=== PATIENT | female | born 1980 | race Caucasian/White ===

== ENCOUNTER 2017-02-15 10:42 | Emergency (ER) | payer OTHER ==
[2017-02-15 10:53] VITALS: BP 131/84; PULSE 80; TEMP 98.5; BMI 29.5
--- NOTE | 2017-02-15 11:27 | PDOC ---
History of Present Illness - General Chief Complaint: Pain Stated Complaint: LT SIDE PAIN Time Seen by Provider: 02/15/17 11:21 History Source: Patient Exam Limitations: No Limitations - History of Present Illness Initial Comments: CHIEF COMPLAINT: 37 y/o afebrile female with PMH HLD, PCOS, diverticulitis with previous cholectomy c/o left side and upper back pain since last night. HISTORY OF PRESENT ILLNESS: The patient states the pain is intermittent and at it's worst she can't get comfortable. She also admits to nausea and vomiting. She denies fever, chills, cough, hemoptysis, CP, SOB, hematuria, dysuria, diarrhea, constipation, melena, bloody stools. Her last normal BM was yesterday. She is a non smoker, has not traveled recently and is not on control. Vital signs on arrival are within normal limits. REVIEW OF SYSTEMS: GENERAL/CONSTITUTIONAL: No fever/chills. No weakness. No weight change. HEAD, EYES, EARS, NOSE AND THROAT: No change in vision. No ear pain or discharge. No sore throat. CARDIOVASCULAR: No chest pain or shortness of breath. RESPIRATORY: No cough, wheezing, or hemoptysis. GASTROINTESTINAL: +nausea and vomiting and left sided abdominal pain. No diarrhea, constipation, bloody or dark stools. GENITOURINARY: No dysuria, frequency, or change in urination. MUSCULOSKELETAL: No joint or muscle swelling or pain. No neck pain. +left side and upper back pain. SKIN: No rash or easy bruising. NEUROLOGIC: No headache, vertigo, loss of consciousness, or loss of sensation. PHYSICAL EXAM: GENERAL: The patient is awake, alert, and fully oriented, in no acute distress. She is well appearing and ambulatory. HEAD: Normal with no signs of trauma. ENT: Pupils equal, round and reactive to light, extraocular movements intact, sclera anicteric, conjunctiva clear. Neck supple. LUNGS: Clear to auscultation bilaterally. Normal excursion. No respiratory distress or use of accessory muscles. CV: RRR, S1/S2, no MRG. Cap refill < 2 sec. ABDOMEN: Soft, non-distended, TTP of left flank and LLQ. No rebound, guarding or rigidity. Normal BS x 4 quadrants. BACK: +left CVA TTP. EXTREMITIES: Normal range of motion, no edema. NEUROLOGICAL: Normal speech, normal gait. CN II-XII grossly intact. PSYCH: Normal mood, normal affect. SKIN: Warm, dry, normal turgor, no rashes or lesions noted. Past History - Past Medical History Allergies/Adverse Reactions: Allergies Allergy/AdvReac Type Severity Reaction Status Date / Time No Known Drug Allergies Allergy Verified 02/15/17 10:53 shrimp Allergy Uncoded 02/15/17 10:53 Home Medications: Ambulatory Orders Acetaminophen [Tylenol .Regular Strength -] 650 mg PO Q4H PRN #0 tablet Sucralfate [Carafate -] 1 gm PO BID #60 tablet 10/02/15 Levofloxacin [Levaquin -] 500 mg PO DAILY #7 tablet 10/03/15 Metronidazole [Flagyl -] 500 mg PO TID #21 tablet 10/03/15 Pantoprazole Sodium [Protonix -] 20 mg PO DAILY #30 tablet.ec 10/03/15 Anemia: No DVT: Yes GI Disorders: Yes (DIVERTICULITIS) Hypercholesterolemia: Yes Kidney Stones: Yes Suicide Attempt (Hx): No - Surgical History Abdominal Surgery: Yes Appendectomy: No Cardiac Surgery: No Cholecystectomy: Yes GI Surgery: Yes (COLECTOMY) Lung Surgery: No Neurologic Surgery: No Orthopedic Surgery: No - Immunization History Immunization Up to Date: Yes - Psycho/Social/Smoking Cessation Hx Anxiety: No Suicidal Ideation: No Smoking Status: No Smoking History: Never smoked Have you smoked in the past 12 months: No Number of Cigarettes Smoked Daily: 0 Hx Alcohol Use: No Drug/Substance Use Hx: No Substance Use Type: None Hx Substance Use Treatment: No *Physical Exam - Vital Signs Last Vital Signs Temp Pulse Resp BP Pulse Ox 98.5 F 80 20 131/84 97 02/15/17 10:50 02/15/17 10:50 02/15/17 10:50 02/15/17 10:50 02/15/17 10:50 ED Treatment Course - LABORATORY CBC & Chemistry Diagram: 02/15/17 12:12 02/15/17 12:12 Medical Decision Making - Medical Decision Making A/P: 37 y/o afebrile female with possible kidney stone. Plan is as follows: 1. Labs 2. UA/culture/hcg 3. IV fluids 4. IV toradol 5. IV zofran 6. Spiral CT Labs unremarkable UA with 3+ blood and [address] IMPRESSION: Left nephrolithiasis with no evidence of obstructive uropathy or acute pathology within the abdomen or pelvis. The patient states she feels much better after medicine. Explained all of her results. Will discharge to home with instructions to take Motrin with food if needed for pain and drink plenty of fluids. Pt instructed to f/u with her PCP within 1 week and return to the ER with any worsening or concerning symptoms. The patient verbalizes understanding of all instructions, has no further questions and is awaiting discharge. *DC/Admit/Observation/Transfer Diagnosis at time of Disposition: Left flank pain Abdominal pain Qualifiers: Abdominal location: left lower quadrant Qualified Code(s): R10.32 - Left lower quadrant pain - Discharge Dispostion Disposition: HOME Condition at time of disposition: Improved - Referrals Referrals: Juan Daugherty MD [Primary Care Provider] - Call tomorrow - Patient Instructions Printed Discharge Instructions: DI for Flank Pain, DI for Abdominal Pain-Adult Additional Instructions: Discharge Instructions: -Take 600mg of Motrin every 6 hours with food for pain if needed -Drink at least 64oz of water daily -Follow up with Dr. Daugherty within 1 week -Return to the ER with any worsening or concerning symptoms
[2017-02-15] MEDS ORDERED: SODIUM CHLORIDE 1,000 ML IV STA (11:33)
[2017-02-15] MEDS ORDERED: ONDANSETRON 4 MG/2 ML VIAL IVPUSH ONE (12:17)
[2017-02-15] MEDS ORDERED: ONDANSETRON 4 MG/2 ML VIAL ONE (12:22)
[2017-02-15 12:23] LABS: BASOPHIL 0.9 % (0-2.0); EOSINOPHIL 2.6 % (0-4.5); MCHC 33.6 g/dl (32.0-36.0); MEAN CELL VOLUME 86.3 fl (80-96); MEAN PLT VOLUME 8.7 fl (7.5-11.1); NEUTROPHILS 57.3 % (42.8-82.8); PLATELET COUNT 255 K/MM3 (134-434); RDW 13.6 % (11.6-15.6); WHITE BLOOD COUNT 7.2 K/mm3 (4.0-10.0)
[2017-02-15 13:00] LABS: ALBUMIN 3.4 g/dl (3.4-5.0); ALK PHOS 86 U/L (45-117); ANION GAP 10 (8-16); BILIRUBIN,TOTAL 0.4 mg/dL (0.2-1.0); CALCIUM 8.7 mg/dL (8.5-10.1); CO2 26 mmol/L (21-32); CPK 94 IU/L (26-192); CREATININE 0.6 mg/dL (0.55-1.02); GLUCOSE,RANDOM 85 mg/dL (74-106); SGPT/ALT 25 U/L (12-78); TOT PROT 6.9 g/dl (6.4-8.2); TROPONIN I < 0.02 ng/ml (0.00-0.05)
[2017-02-15 13:01] LABS: SGOT/AST 19 U/L (15-37)
[2017-02-15] MEDS ORDERED: KETOROLAC TROMETHAMINE 30 MG/1 ML VIAL IVPUSH ONE (13:14)
[2017-02-15] MEDS ORDERED: KETOROLAC TROMETHAMINE 30 MG/1 ML VIAL ONE (13:34)
[2017-02-15 14:17] LABS: URINE APPEARANCE SLCLOUDY; URINE BILIRUBIN NEGATIVE (NEGATIVE); URINE BLOOD 3+ (NEGATIVE); URINE COLOR LTYELLOW; URINE GLUCOSE (UA) NEGATIVE (NEGATIVE); URINE KETONE NEGATIVE (NEGATIVE); URINE LEUK ESTERASE NEGATIVE (NEGATIVE); URINE NITRITE NEGATIVE (NEGATIVE); URINE PROTEIN NEGATIVE (NEGATIVE); URINE UROBILINOGEN NEGATIVE mg/dL (0.2-1.0)
[2017-02-15 14:30] LABS: URINE MUCUS RARE; URINE RBC 170 /hpf (0-3); URINE WBC 11 /hpf (3-5)
--- NOTE | 2017-02-15 15:20 | PDOC ---
*Physical Exam - Vital Signs Last Vital Signs Temp Pulse Resp BP Pulse Ox 98.5 F 80 20 131/84 97 02/15/17 10:50 02/15/17 10:50 02/15/17 10:50 02/15/17 10:50 02/15/17 10:50 ED Treatment Course - LABORATORY CBC & Chemistry Diagram: 02/15/17 12:12 02/15/17 12:12 - ADDITIONAL ORDERS Additional order review: Laboratory Results 02/15/17 02/15/17 02/15/17 13:50 12:17 12:12 Sodium 140 Potassium 4.1 Chloride 104 Carbon Dioxide 26 Anion Gap 10 BUN 10 Creatinine 0.6 Creat Clearance w eGFR > 60 Random Glucose 85 Calcium 8.7 Total Bilirubin 0.4 AST 19 D ALT 25 D Alkaline Phosphatase 86 Creatine Kinase 94 Troponin I < 0.02 Total Protein 6.9 Albumin 3.4 D Serum , Qual Negative Urine Color Ltyellow Urine Appearance Slcloudy Urine pH 7.0 Urine Protein Negative Urine Glucose (UA) Negative Urine Ketones Negative Urine Blood 3+ H Urine Nitrite Negative Urine Bilirubin Negative Urine Urobilinogen Negative Ur Leukocyte Esterase Negative Urine RBC 170 Urine WBC 11 Ur Epithelial Cells Rare Urine Mucus Rare Urine HCG, Qual Negative 02/15/17 12:12 RBC 4.59 MCV 86.3 MCHC 33.6 RDW 13.6 MPV 8.7 Neutrophils % 57.3 Lymphocytes % 32.4 Monocytes % 6.8 Eosinophils % 2.6 Basophils % 0.9 - Medications Given in the ED: ED Medications Discontinued Medications Generic Name Dose Route Start Last Admin Trade Name Freq PRN Reason Stop Dose Admin Sodium Chloride 1,000 mls @ 1,000 mls/hr 02/15/17 11:33 02/15/17 12:11 Normal Saline - IV 02/15/17 12:32 1,000 mls/hr ASDIR STA Administration Ketorolac Tromethamine 30 mg 02/15/17 13:14 02/15/17 13:34 Toradol Injection - IVPUSH 02/15/17 13:15 30 mg ONCE ONE Administration Ondansetron HCl 4 mg 02/15/17 12:17 02/15/17 12:21 Zofran Injection IVPUSH 02/15/17 12:18 4 mg ONCE ONE Administration Medical Decision Making - Medical Decision Making 02/15/17 15:18 I have seen and examined the patient with REGI Rai. I agree with her assessment and plan. *DC/Admit/Observation/Transfer Diagnosis at time of Disposition: Left flank pain Abdominal pain Qualifiers: Abdominal location: left lower quadrant Qualified Code(s): R10.32 - Left lower quadrant pain - Discharge Dispostion Disposition: HOME Condition at time of disposition: Improved - Referrals Referrals: Juan Daugherty MD [Primary Care Provider] - Call tomorrow - Patient Instructions Printed Discharge Instructions: DI for Abdominal Pain-Adult, DI for Flank Pain Additional Instructions: Discharge Instructions: -Take 600mg of Motrin every 6 hours with food for pain if needed -Drink at least 64oz of water daily -Follow up with Dr. Daugherty within 1 week -Return to the ER with any worsening or concerning symptoms - Post Discharge Activity
== END 2017-02-15 15:19 | disposition home or self-care (01) ==
LOC: JER 10:42
PROC: 3E0333Z Introduction of Anti-inflammatory into Peripheral Vein, Percutaneous Approach (ICD-10-PCS; principal; 2017-02-15)
PROC: 3E033GC Introduction of Other Therapeutic Substance into Peripheral Vein, Percutaneous Approach (ICD-10-PCS; 2017-02-15)
PROC: 3E0337Z Introduction of Electrolytic and Water Balance Substance into Peripheral Vein, Percutaneous Approach (ICD-10-PCS; 2017-02-15)
DX: R10.32 Left lower quadrant pain (principal); E78.00 Pure hypercholesterolemia, unspecified; Z87.442 Personal history of urinary calculi
CPT/HCPCS: 36415; 74176; 80053; 81003; 81015; 84484; 84703; 85025; 87086; 99283-25

== ENCOUNTER 2017-08-24 22:47 | Emergency (ER) | payer OTHER ==
[2017-08-24 22:53] VITALS: BMI 33.4
--- NOTE | 2017-08-25 00:28 | PDOC ---
History of Present Illness - General Chief Complaint: Vaginal Bleeding Stated Complaint: VAGINAL BLEEDING/6 WKS Time Seen by Provider: 08/24/17 23:08 - History of Present Illness Initial Comments: 08/25/17 00:28 CHIEF COMPLAINT: vaginal bleeding HISTORY OF PRESENT ILLNESS: 37 yo F F with recent positive test presents to ED with vaginal bleeding x a few hours. Patient reports she had a positive last week and per her LMP she is approximately 6 weeks . She [facility] she felt "some cramping" and went to the restroom and noticed "some pink when I wiped." Since she arrived to the ER she has been bleeding more with clots, similar to the other "3-4 times I had a miscarriage." She denies any SOB, palpitations, lightheadedness, or dizziness. PAST MEDICAL HISTORY: Denies past medical history FAMILY HISTORY: Denies SOCIAL HISTORY: Denies tobacco, alcohol, illicit drug use. SURGICAL HISTORY: Denies ALLERGIES: shrimp REVIEW OF SYSTEMS as per HPI PHYSICAL EXAM General Appearance: Well-appearing, appropriately dressed. No apparent distress. HEENT: EOMI, PERRLA, normal ENT inspection, normal voice, TMs normal, pharynx normal. No conjunctival pallor. No photophobia, scleral icterus. Respiratory/Chest: Lungs CTAB. Cardiovascular: RRR. S1, S2. Gastrointestinal/Abdominal: Normal bowel sounds. Abdomen soft, non-distended. No tenderness or rebound tenderness. No organomegaly, pulsatile mass, guarding , hernia, hepatomegaly, splenomegaly. Musculoskeletal/Extremities: Normal inspection. FROM of all extremities, normal capillary refill. Pelvis Stable. No CVA tenderness. No tenderness to extremities, pedal edema, swelling, erythema or deformity. Integumentary: Appropriate color, dry, warm. No cyanosis, erythema, jaundice or rash Neurologic: rag willow operator II-XII intact. Fully oriented, alert. Appropriate mood/affect. Motor strength 5/5. No appreciable EOM palsy, facial droop or sensory deficit. Past History - Past Medical History Allergies/Adverse Reactions: Allergies Allergy/AdvReac Type Severity Reaction Status Date / Time No Known Drug Allergies Allergy Verified 05/10/17 13:05 shrimp Allergy Uncoded 05/10/17 13:05 Home Medications: Ambulatory Orders NK [No Known Home Medication] 05/10/17 Anemia: No COPD: No DVT: Yes GI Disorders: Yes (DIVERTICULITIS) Hypercholesterolemia: Yes Kidney Stones: Yes - Surgical History Abdominal Surgery: Yes Appendectomy: No Cardiac Surgery: No Cholecystectomy: Yes GI Surgery: Yes (COLECTOMY) Lung Surgery: No Neurologic Surgery: No Orthopedic Surgery: No - Immunization History Immunization Up to Date: Yes - Suicide/Smoking/Psychosocial Hx Smoking Status: No Smoking History: Never smoked Have you smoked in the past 12 months: No Number of Cigarettes Smoked Daily: 0 Information on smoking cessation initiated: No Hx Alcohol Use: No Drug/Substance Use Hx: No Substance Use Type: None Hx Substance Use Treatment: No *Physical Exam - Vital Signs Last Vital Signs Temp Pulse Resp BP Pulse Ox 97.9 F 64 18 111/74 100 08/24/17 22:50 08/24/17 22:50 08/24/17 22:50 08/24/17 22:50 08/24/17 22:50 ED Treatment Course - LABORATORY CBC & Chemistry Diagram: 08/25/17 01:26 08/25/17 01:26 - RADIOLOGY Radiology Studies Ordered: Category Date Time Status TRANSVAGINAL US PREG [US] Stat Ultrasound 08/25/17 23:25 Ordered Medical Decision Making - Medical Decision Making 08/25/17 01:06 37 yo F F with recent positive test presents to ED with vaginal bleeding x a few hours. -T&S, CBC, CMP, beta -TVUS *DC/Admit/Observation/Transfer Diagnosis at time of Disposition: Threatened - Discharge Dispostion Disposition: HOME Condition at time of disposition: Stable Admit: No - Referrals Referrals: Juan Daugherty MD [Primary Care Provider] - Etienne West MD [Staff Physician] - - Patient Instructions Printed Discharge Instructions: DI for Threatened Additional Instructions: You MUST return in 48 hours for a repeat blood test. If you develop severe vaginal bleeding (more than one soaked pad an hour), worsening abdominal pain, lightheadedness, dizziness, or any new or worsening symptoms, please return to the ER. - Post Discharge Activity
--- NOTE | 2017-08-25 01:11 | PDOC ---
*Physical Exam - Vital Signs Last Vital Signs Temp Pulse Resp BP Pulse Ox 97.9 F 64 18 111/74 100 08/24/17 22:50 08/24/17 22:50 08/24/17 22:50 08/24/17 22:50 08/24/17 22:50 Medical Decision Making - Medical Decision Making 08/25/17 01:11 agree with care from VAIBHAV Newman *DC/Admit/Observation/Transfer - Referrals Referrals: Juan Daugherty MD [Primary Care Provider] - - Patient Instructions - Post Discharge Activity
[2017-08-25 01:34] LABS: BASO % 0.8 % (0-2.0); EOS % 1.3 % (0-4.5); HEMATOCRIT 38.3 % (32.4-45.2); LYMPH % 29.8 % (8-40); MCH 29.7 pg (25.7-33.7); MEAN CELL VOLUME 87.4 fl (80-96); MEAN PLT VOLUME 8.3 fl (7.5-11.1); MONO % 5.8 % (3.8-10.2); NEUT % 62.3 % (42.8-82.8); PLATELET COUNT 265 K/MM3 (134-434); RBC 4.38 M/mm3 (3.60-5.2); RDW 12.7 % (11.6-15.6); WHITE BLOOD COUNT 10.7 K/mm3 (4.0-10.0)
[2017-08-25 02:00] LABS: ALBUMIN 3.5 g/dl (3.4-5.0); ANION GAP 8 (8-16); BILIRUBIN,TOTAL 0.6 mg/dL (0.2-1.0); BLOOD UREA NITROGEN 14 mg/dL (7-18); CALCIUM 8.1 mg/dL (8.5-10.1); CHLORIDE 107 mmol/L (98-107); CO2 25 mmol/L (21-32); CREATININE 0.7 mg/dL (0.55-1.02); GLUCOSE,RANDOM 99 mg/dL (74-106); POTASSIUM 3.8 mmol/L (3.5-5.1); SGOT/AST 13 U/L (15-37); SGPT/ALT 19 U/L (12-78); SODIUM 140 mmol/L (136-145)
[2017-08-25 02:03] LABS: ALK PHOS 80 U/L (45-117); TOT PROT 6.6 g/dl (6.4-8.2)
[2017-08-25 02:43] VITALS: BP 110/72; PULSE 86; TEMP 97.8
== END 2017-08-25 02:43 | disposition home or self-care (01) ==
LOC: JER 22:47
DX: O26.891 Other specified pregnancy related conditions, first trimester (principal); O20.8 Other hemorrhage in early pregnancy; O34.81 Maternal care for other abnormalities of pelvic organs, first trimester; N83.201 Unspecified ovarian cyst, right side; Z3A.01 Less than 8 weeks gestation of pregnancy; Z86.718 Personal history of other venous thrombosis and embolism; Z87.19 Personal history of other diseases of the digestive system
CPT/HCPCS: 36415; 76817-TC; 80053; 84702; 85025; 86850; 86900; 86901; 99281-25

== ENCOUNTER 2017-08-27 07:47 | Emergency (ER) | payer OTHER ==
[2017-08-27 08:05] VITALS: TEMP 98; BMI 33.2
--- NOTE | 2017-08-27 08:43 | PDOC ---
History of Present Illness - General Chief Complaint: [facility] [place] Stated Complaint: REVISIT LABS VARIANCE Time Seen by Provider: 08/27/17 08:42 - History of Present Illness Initial Comments: 08/27/17 08:47 Ms. Jimenez is a 37 yo female w/ pmh of HLD, PCOS, diverticulitis representing as instructed after exam 3 days ago for vaginal bleeding. She believes she is approximately 6 weeks and began experiencing cramping and bleeding that prompted previous exam similar to previous miscarriages. Today Ms. Jimenez reports that she experienced further cramping and bleeding for 2 days after her last visit and believes she has miscarried. She has less cramping today but continues to have bleeding consistent with her normal period. She otherwise has no complaints. The patient denies chest pain, shortness of breath, headache and dizziness. Denies fever, chills, nausea, vomit, diarrhea and constipation. Denies dysuria, frequency, urgency and hematuria. Allergies: NKDA Past History - Past Medical History Allergies/Adverse Reactions: Allergies Allergy/AdvReac Type Severity Reaction Status Date / Time No Known Drug Allergies Allergy Verified 08/27/17 08:05 shrimp Allergy Uncoded 08/27/17 08:05 Home Medications: Ambulatory Orders NK [No Known Home Medication] 05/10/17 Anemia: No COPD: No DVT: Yes GI Disorders: Yes (DIVERTICULITIS) Hypercholesterolemia: Yes Kidney Stones: Yes - Surgical History Abdominal Surgery: Yes Appendectomy: No Cardiac Surgery: No Cholecystectomy: Yes GI Surgery: Yes (COLECTOMY) Lung Surgery: No Neurologic Surgery: No Orthopedic Surgery: No - Immunization History Immunization Up to Date: Yes - Suicide/Smoking/Psychosocial Hx Smoking Status: No Smoking History: Never smoked Have you smoked in the past 12 months: No Number of Cigarettes Smoked Daily: 0 Hx Alcohol Use: No Drug/Substance Use Hx: No Substance Use Type: None Hx Substance Use Treatment: No Review of Systems - Review of Systems Comments:: 08/27/17 08:51 GENERAL/CONSTITUTIONAL: No fever or chills. No weakness. HEAD, EYES, EARS, NOSE AND THROAT: No change in vision. No ear pain or discharge. No sore throat. CARDIOVASCULAR: No chest pain or shortness of breath RESPIRATORY: No cough, wheezing, or hemoptysis. GASTROINTESTINAL: No nausea, vomiting, diarrhea or constipation. GENITOURINARY: No dysuria, frequency, or change in urination. MUSCULOSKELETAL: No joint or muscle swelling or pain. No neck or back pain. SKIN: No rash NEUROLOGIC: No headache, vertigo, loss of consciousness, or change in strength/ sensation. ENDOCRINE: No increased thirst. No abnormal weight change HEMATOLOGIC/LYMPHATIC: No anemia, easy bleeding, or history of blood clots. ALLERGIC/IMMUNOLOGIC: No hives or skin allergy. : Cramping for 2 days as described. Bleeding consistent with menstruation over the last 3 days. *Physical Exam - Vital Signs Last Vital Signs Temp Pulse Resp BP Pulse Ox 98 F 85 20 116/81 08/27/17 08:01 08/27/17 08:01 08/27/17 08:01 08/27/17 08:01 - Physical Exam Comments: 08/27/17 08:51 GENERAL: Awake, alert, and fully oriented, in no acute distress HEAD: No signs of trauma, normocephalic, atraumatic EYES: PERRLA, EOMI, sclera anicteric, conjunctiva clear ENT: Auricles normal inspection, hearing grossly normal, nares patent, oropharynx clear without exudates. Moist mucosa NECK: Normal ROM, supple, no lymphadenopathy, JVD, or masses LUNGS: No distress, speaks full sentences, clear to auscultation bilaterally HEART: Regular rate and rhythm, normal S1 and S2, no murmurs, rubs or gallops, peripheral pulses normal and equal bilaterally. ABDOMEN: Soft, nontender, normoactive bowel sounds. No guarding, no rebound. No masses EXTREMITIES: Normal inspection, Normal range of motion, no edema. No clubbing or cyanosis. NEUROLOGICAL: Cranial nerves II through XII grossly intact. Normal speech, normal gait, no focal sensorimotor deficits SKIN: Warm, Dry, normal turgor, no rashes or lesions noted. : Scant blood noted in vaginal vault. Cervical os closed. No CMT or adnexal tenderness. Medical Decision Making - Medical Decision Making 08/27/17 11:55 Ms. Jimenez is a 37 yo female w/ pmh as described who presents for repeat HCG per prior visit plan. Transvaginal US sent for evaluation. HCG shown to be decreased as below. *DC/Admit/Observation/Transfer Diagnosis at time of Disposition: Miscarriage - Referrals Referrals: Juan Daugherty MD [Primary Care Provider] - - Patient Instructions Printed Discharge Instructions: DI for Miscarriage Additional Instructions: Please return if any continued bleeding, pain, fever, chills, or other concerning symptoms. Follow-up with your [facility] as discussed for further evaluation. - Post Discharge Activity Forms/Work/School Notes: Back to Work
--- NOTE | 2017-08-27 09:14 | PDOC ---
Attending Attestation - Resident Resident Name: Eusebio Stroud - ED Attending Attestation I have performed the following: I have examined & evaluated the patient, The case was reviewed & discussed with the resident, I agree w/resident's findings & plan, Exceptions are as noted - HPI HPI: 08/27/17 09:13 37y F hx of HL, PCOS, G6G2 presents with vaginal bleeding, was here a few days ago with Beta of 133, US shows no IUp, was sent to the ED for repeat exam. Pt without any complaints but notes that she had increase vaginal bleeding since . Cramping seems to be improving. Pt denies any fever/chills, n/v, new back pain, vag discharge, dysuria. abd soft nontender pt well appearing will recheck beta and US - Physicial Exam PE: 08/27/17 16:26 see above - Medical Decision Making beta trending lower US shows no IUP suspect missed ab will dc with pmd fu
[2017-08-27] MEDS ORDERED: ACETAMINOPHEN 325 MG TABLET (FP) PO ONE (09:46)
[2017-08-27] MEDS ORDERED: ACETAMINOPHEN 325 MG TABLET (FP) ONE (10:32)
[2017-08-27 13:14] VITALS: BP 112/60; PULSE 80
== END 2017-08-27 13:00 | disposition home or self-care (01) ==
LOC: JER 07:47
DX: O26.891 Other specified pregnancy related conditions, first trimester (principal); O02.1 Missed abortion; Z3A.01 Less than 8 weeks gestation of pregnancy
CPT/HCPCS: 36415; 76817-TC; 84702; 99283-25

== ENCOUNTER 2017-11-10 20:42 | Emergency (ER) | payer OTHER ==
[2017-11-10 21:19] VITALS: BP 105/72; PULSE 100; TEMP 98.2; BMI 33.4
[2017-11-10 23:09] LABS: URINE APPEARANCE CLEAR; URINE BILIRUBIN NEGATIVE (<2.0 mg/dL); URINE COLOR YELLOW; URINE GLUCOSE (UA) NEGATIVE (NEGATIVE); URINE KETONE NEGATIVE (NEGATIVE); URINE LEUK ESTERASE NEGATIVE (NEGATIVE); URINE NITRITE NEGATIVE (NEGATIVE); URINE PROTEIN NEGATIVE (NEGATIVE)
[2017-11-10 23:14] LABS: HCG,QUALITATIVE URINE NEGATIVE
[2017-11-10 23:19] LABS: CALCIUM OXALATE CRYSTALS FEW /hpf (NONE SEEN); EPI CELLS RARE /HPF (FEW); URINE MUCUS RARE
--- NOTE | 2017-11-11 00:05 | PDOC ---
History of Present Illness - General Chief Complaint: Urinary Problem Stated Complaint: PAIN Time Seen by Provider: 11/10/17 22:55 History Source: Patient Exam Limitations: No Limitations - History of Present Illness Initial Comments: 11/11/17 00:01 Best Contact: PCP:N/A Pmhx:Renal colid/ POCS Pshx: 08/2017: Miscarriage 06/2017: Miscarriage 10/2016/Sigmoid colectomy 2016: Left ovarian cystectomy 2008: Lap cholecystecomy Allergies: NKDA LMP: Presently 37-year-old female presents to the emergency department complaining of dysuria, urinary frequency/urgency/hesitancy, left flank pain x1d without hematuria, nausea/vomiting, fever/chills, chest pain, shortness of breath, abdominal pains , extremity numbness or tingling sensation. Patient states she is sexually active but denies any pain during coitus. Patient states she has renal colic and wants to make sure "it's not acting up". Past History - Past Medical History Allergies/Adverse Reactions: Allergies Allergy/AdvReac Type Severity Reaction Status Date / Time No Known Drug Allergies Allergy Verified 08/27/17 08:05 shrimp Allergy Uncoded 11/10/17 21:13 Home Medications: Ambulatory Orders NK [No Known Home Medication] 05/10/17 Anemia: No Asthma: No Cancer: No Cardiac Disorders: No CVA: No COPD: No CHF: No DVT: Yes Dementia: No Diabetes: No GI Disorders: Yes (DIVERTICULITIS) Disorders: No HTN: No Hypercholesterolemia: Yes Kidney Stones: Yes Liver Disease: No Seizures: No Thyroid Disease: No - Surgical History Abdominal Surgery: Yes Appendectomy: No Cardiac Surgery: No Cholecystectomy: Yes GI Surgery: Yes (COLECTOMY) Lung Surgery: No Neurologic Surgery: No Orthopedic Surgery: No - Reproductive History (#): 5 Para: 2 Spontaneous : 2 - Immunization History Immunization Up to Date: Yes - Suicide/Smoking/Psychosocial Hx Smoking Status: No Smoking History: Never smoked Have you smoked in the past 12 months: No Number of Cigarettes Smoked Daily: 0 Information on smoking cessation initiated: No Hx Alcohol Use: No Drug/Substance Use Hx: No Substance Use Type: None Hx Substance Use Treatment: No Review of Systems - Review of Systems Able to Perform ROS?: Yes Comments:: 11/11/17 00:04 CONSTITUTIONAL: Absent: fever, chills, diaphoresis, generalized weakness, malaise, loss of appetite HEENT: Absent: rhinorrhea, nasal congestion, throat pain, throat swelling, difficulty swallowing, mouth swelling, ear pain, eye pain, visual Changes CARDIOVASCULAR: Absent: chest pain, loss of consciousness, palpitations, irregular heart rate, peripheral edema RESPIRATORY: Absent: cough, shortness of breath, dyspnea with exertion, orthopnea, wheezing, stridor, hemoptysis GASTROINTESTINAL: Absent: abdominal pain, abdominal distension, nausea, vomiting, diarrhea, constipation, melena, hematochezia GENITOURINARY: +Left flank pain, dysuria, frequency, urgency, hesitancy Absent: hematuria, genital pain MUSCULOSKELETAL: Absent: myalgia, arthralgia, joint swelling SKIN: Absent: rash, itching, pallor Is the patient limited Italian proficient: No *Physical Exam - Vital Signs Last Vital Signs Temp Pulse Resp BP Pulse Ox 98.2 F 100 H 16 105/72 100 11/10/17 21:11 11/10/17 21:11 11/10/17 21:11 11/10/17 21:11 11/10/17 21:11 - Physical Exam Comments: 11/11/17 00:05 GENERAL: Well developed, well nourished. Awake and alert. No acute distress. HEENT: Normocephalic, atraumatic. PERRLA, EOMI. No conjunctival pallor. Sclera are non- icteric. Moist mucous membranes. Oropharynx is clear. NECK: Supple. Full ROM. No JVD. Carotid pulses 2+ and symmetric, without bruits. No thyromegaly. No lymphadenopathy. CARDIOVASCULAR: Regular rate and rhythm. No murmurs, rubs, or gallops. Distal pulses are 2+ and symmetric. PULMONARY: No evidence of respiratory distress. Lungs clear to auscultation bilaterally. No wheezing, rales or rhonchi. ABDOMINAL: Soft. Non-tender. Non-distended. No rebound or guarding. No organomegaly. Normoactive bowel sounds. MUSCULOSKELETAL +left flank pain Normal range of motion at all joints. No bony deformities or tenderness. EXTREMITIES: No cyanosis. No clubbing. No edema. No calf tenderness. SKIN: Warm and dry. Normal capillary refill. No rashes. No jaundice. Pelvic: External genitalia normal without lesions. Vaginal vault is clear without blood or discharge. Cervix is long and closed. No cervical motion tenderness. Uterus is nontender and normal in size. Adnexa are nontender and without masses. ED Treatment Course - ADDITIONAL ORDERS Additional order review: Laboratory Results 11/10/17 22:49 Urine Color Yellow Urine Appearance Clear Urine pH 6.0 Ur Specific [place] 1.026 Urine Protein Negative Urine Glucose (UA) Negative Urine Ketones Negative Urine Blood 2+ H Urine Nitrite Negative Urine Bilirubin Negative Urine Urobilinogen 2.0 H Ur Leukocyte Esterase Negative Urine WBC (Auto) 1 Urine RBC (Auto) 30 Ur Epithelial Cells Rare Calcium Oxalate Crystal Few Urine Mucus Rare Urine HCG, Qual Negative - RADIOLOGY Radiology Studies Ordered: Category Date Time Status SPIRAL- RENAL-STONE CT [CT] Stat CT Scan 11/10/17 23:20 Ordered Radiograph Interpretation: 11/11/[address] Small nonobstructing stones on the left Impression: Nephrolithiasis *DC/Admit/Observation/Transfer Diagnosis at time of Disposition: Nephrolithiasis, Yeast infection UTI (urinary tract infection) Qualifiers: Urinary tract infection type: acute cystitis Hematuria presence: without hematuria Qualified Code(s): N30.00 - Acute cystitis without hematuria - Discharge Dispostion Condition at time of disposition: Stable Decision to Admit order: No - Referrals Referrals: Zach Hernandez MD [Staff Physician] - Juan Daugherty MD [Primary Care Provider] - Nurys Barton MD [Staff Physician] - - Patient Instructions Printed Discharge Instructions: DI for Vaginal Yeast Infection, DI for Urinary Tract Infection (UTI) Additional Instructions: Pelvic rest Antibiotics as prescribed Follow-up with your graves registration specialist or Dr. Barton Follow-up with the urologist/Dr. 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
[2017-11-11] MEDS ORDERED: PHENAZOPYRIDINE HCL 100 MG TABLET (FP) PO ONE (02:23)
[2017-11-11] MEDS ORDERED: FLUCONAZOLE 50 MG TABLET PO ONE (02:23)
[2017-11-11] MEDS ORDERED: SULFAMETHOXAZOLE/TRIMETHOPRIM 800MG/160MG D.S. TABLET PO ONE (02:27)
[2017-11-11] MEDS ORDERED: FLUCONAZOLE 100 MG TABLET (UD) ONE (02:41)
[2017-11-11] MEDS ORDERED: SULFAMETHOXAZOLE/TRIMETHOPRIM 800MG/160MG D.S. TABLET ONE (02:41)
[2017-11-11] MEDS ORDERED: PHENAZOPYRIDINE HCL 100 MG TABLET (FP) ONE (02:41)
== END 2017-11-11 02:49 | disposition home or self-care (01) ==
LOC: JER 20:42
DX: N20.0 Calculus of kidney (principal); Z87.442 Personal history of urinary calculi; N30.00 Acute cystitis without hematuria; B37.3 Candidiasis of vulva and vagina
CPT/HCPCS: 74176; 81003; 81015; 84703; 87086; 99281-25

== ENCOUNTER 2018-04-12 22:50 | Emergency (ER) | payer OTHER ==
[2018-04-12 22:56] VITALS: BP 122/64; BMI 34.4
--- NOTE | 2018-04-12 23:56 | PDOC ---
History of Present Illness - General Chief Complaint: Pain Stated Complaint: ABDOMINAL PAIN/15 WKS Time Seen by Provider: 04/12/18 23:18 History Source: Patient Exam Limitations: No Limitations - History of Present Illness Initial Comments: 04/12/18 23:49 Pt is 38yo f with no significant PMH presenting to ED with complaints of pelvic pain x2 weeks that is worse when she walks. Pt went to [facility] 2 weeks ago, could not be evaluated for kidney stones, but ultrasound was negative. Pt went to her OB last week and was told that everything was alright with the baby and she was having ligament pain. Pt says pain feels like her bladder is full and distended, stays in the groin. She feels the pain in her lower back when she walks. Associated with nausea. She admits to constipation. Tylenol does not help. She has had 7 pregnancies with 4 spontaneous abortions this year. She has had 2 vaginal deliveries without complications. She denies vaginal bleeding, leakage of fluid, discharge, contractions, protrusions from the vagina, trauma to the abdomen, fevers, hematuria, dysuria, burning, weakness. PCP: Sancho Daugherty OB: Yancy PMH: migraines PSH: none Meds: none Social: denies Alleries: nkda Past History - Past Medical History Allergies/Adverse Reactions: Allergies Allergy/AdvReac Type Severity Reaction Status Date / Time No Known Drug Allergies Allergy Verified 04/12/18 22:56 shrimp Allergy Uncoded 04/12/18 22:56 Home Medications: Ambulatory Orders NK [No Known Home Medication] 05/10/17 Phenazopyridine HCl [Pyridium] 100 mg PO BID #4 tablet 11/11/17 Sulfamethoxazole/Trimethoprim [Bactrim Ds Tablet] 1 each PO BID #14 tablet 11/11 Anemia: No Asthma: No Cancer: No Cardiac Disorders: No CVA: No COPD: No CHF: No DVT: Yes Dementia: No Diabetes: No GI Disorders: Yes (DIVERTICULITIS) Disorders: No HTN: No Hypercholesterolemia: Yes Kidney Stones: Yes Liver Disease: No Seizures: No Thyroid Disease: No - Surgical History Abdominal Surgery: Yes Appendectomy: No Cardiac Surgery: No Cholecystectomy: Yes GI Surgery: Yes (COLECTOMY) Lung Surgery: No Neurologic Surgery: No Orthopedic Surgery: No - Reproductive History (#): 5 Para: 2 Spontaneous : 2 - Immunization History Immunization Up to Date: Yes - Suicide/Smoking/Psychosocial Hx Smoking Status: No Smoking History: Never smoked Have you smoked in the past 12 months: No Number of Cigarettes Smoked Daily: 0 Hx Alcohol Use: No Drug/Substance Use Hx: No Substance Use Type: None Hx Substance Use Treatment: No *Physical Exam - Vital Signs Last Vital Signs Temp Pulse Resp BP Pulse Ox 98 F 100 H 18 122/64 100 04/12/18 22:53 04/12/18 22:53 04/12/18 22:53 04/12/18 22:53 04/12/18 22:53 ED Treatment Course - LABORATORY CBC & Chemistry Diagram: 04/13/18 01:08 04/13/18 01:08 *DC/Admit/Observation/Transfer Diagnosis at time of Disposition: Pelvic pain - Discharge Dispostion Disposition: HOME Condition at time of disposition: Good Decision to Admit order: No - Referrals Referrals: Juan Daugherty MD [Primary Care Provider] - Rosita Haines MD [Staff Physician] - - Patient Instructions Printed Discharge Instructions: DI for Pelvic Pain Additional Instructions: You were seen here today for evaluation of pelvic pain. The ultrasound showed a 6mm non-obstructing stone in the right kidney. The ultrasound of the uterus was normal. Your blood tests were normal. Continue to take Tylenol as directed for your pain. I recommend seeing a urologist as well as your movie theater usher for further evaluation and management of your symptoms. Dr. Brunson is affiliated with [facility] Please come back to the emergency room if: pain gets worse, you notice bleeding/ spotting, you have contractions, your water breaks, there is blood in your urine , you develop fever or if any new concerning symptom develops. Thank you - Post Discharge Activity
--- NOTE | 2018-04-13 00:38 | PDOC ---
Attending Attestation - HPI HPI: 04/13/18 00:38 The patient is a 38 year old female, 15 weeks , with no significant past medical history who presents to the ED with complaints of pelvic pain for 2 weeks that is worse when she walks. Patient went to [facility] 2 weeks ago and had a negative US. She went to her OB last week and was told that everything was normal. Patient describes her pelvis pain as her bladder is full and distended, stays in the groin. She feels the pain in her lower back when she walks. She also reports nausea and constipation. She took Tylenol with no relief. Denies vaginal bleeding, discharge, contractions. Denies fever or chills. Denies change in urinary output. Denies any other symptoms. Documentation prepared by Danny Dominguez, acting as medical orderly for Radha Nichols DO - Physicial Exam PE: 04/13/18 00:39 Constitutional: Awake, alert, oriented. No acute distress. Head: Normocephalic. Atraumatic Eyes: PERRL. EOMI. Conjunctivae are not pale. ENT: Mucous membranes are moist and intact. Posterior pharynx without exudates or erythema. Uvula midline. Neck: Supple. Full ROM. No lymphadenopathy. Cardiovascular: Regular rate. Regular rhythm. S1, S2 regular. Distal pulses are 2+ and symmetric. Pulmonary/Chest: No evidence of respiratory distress. Clear to auscultation bilaterally No wheezing, rales or rhonchi. Abdominal: + Superpubic Tenderness. Soft and non-distended. No rebound, guarding or rigidity. No organomegaly. No palpable masses. Good bowel sounds. Back: + Bilateral CVA tenderness. Musculoskeletal: No edema. No cyanosis. No clubbing. Full range of motion in all extremities. Nocalf tenderness. Radial/pedal pulses are intact and 2+ bilaterally Skin: Skin is warm and dry. No petechiae. No purpura. Neurological: Alert and oriented to person, place, and time. Cranial nerves II -XII are grossly intact. Normal speech. Strength is grossly symmetric. No sensory deficits. Psychiatric: Good eye contact. Normal interaction, affect and behavior. <Danny Dominguez - Last Filed: 04/13/18 00:38> - Resident Resident Name: Lamar Tineo - ED Attending Attestation I have performed the following: I have examined & evaluated the patient, The case was reviewed & discussed with the resident, I agree w/resident's findings & plan, Exceptions are as noted - Medical Decision Making 04/13/18 00:35 I, Dr. Radha Nichols, DO, attest that this document has been prepared under my direction and personally reviewed by me in its entirety. I further attest, that it accurately reflects all work, treatment, procedures and medical decision -making performed by me. 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 No previa renal ultrasound shows a 6mm nonobstructing right renal stone without obstruction or hydronephrosis 04/13/18 02:00 labs reviewed and stable <Radha Nichols - Last Filed: 04/13/18 02:01>
[2018-04-13 01:06] LABS: URINE APPEARANCE CLEAR; URINE BILIRUBIN NEGATIVE (<2.0 mg/dL); URINE COLOR LTYELLOW; URINE GLUCOSE (UA) NEGATIVE (NEGATIVE); URINE KETONE NEGATIVE (NEGATIVE); URINE LEUK ESTERASE NEGATIVE (NEGATIVE); URINE NITRITE NEGATIVE (NEGATIVE); URINE PROTEIN NEGATIVE (NEGATIVE); URINE UROBILINOGEN NEGATIVE mg/dL (0.2-1.0)
[2018-04-13 01:26] LABS: BASO % 0.4 % (0-2.0); EOS % 2.1 % (0-4.5); HEMATOCRIT 34.7 % (32.4-45.2); HEMOGLOBIN 11.9 GM/dL (10.7-15.3); LYMPH % 23.1 % (8-40); MCH 29.6 pg (25.7-33.7); MCHC 34.2 g/dl (32.0-36.0); MEAN CELL VOLUME 86.6 fl (80-96); MEAN PLT VOLUME 8.4 fl (7.5-11.1); MONO % 6.3 % (3.8-10.2); NEUT % 68.1 % (42.8-82.8); PLATELET COUNT 256 K/MM3 (134-434); RBC 4.01 M/mm3 (3.60-5.2); WHITE BLOOD COUNT 10.8 K/mm3 (4.0-10.0)
[2018-04-13 01:47] LABS: ALBUMIN 2.9 g/dl (3.4-5.0); ALK PHOS 76 U/L (45-117); ANION GAP 8 MMOL/L (8-16); BILIRUBIN,TOTAL 0.2 mg/dL (0.2-1); BLOOD UREA NITROGEN 8 mg/dL (7-18); CALCIUM 8.6 mg/dL (8.5-10.1); CHLORIDE 106 mmol/L (98-107); CO2 23 mmol/L (21-32); CREATININE 0.5 mg/dL (0.55-1.3); GLUCOSE,RANDOM 94 mg/dL (74-106); POTASSIUM 3.8 mmol/L (3.5-5.1); SGOT/AST 12 U/L (15-37); SGPT/ALT 15 U/L (13-61); SODIUM 137 mmol/L (136-145); TOT PROT 6.6 g/dl (6.4-8.2)
[2018-04-13 02:07] VITALS: PULSE 88; TEMP 97.9
== END 2018-04-13 02:07 | disposition home or self-care (01) ==
LOC: JER 22:50
DX: O26.892 Other specified pregnancy related conditions, second trimester (principal); R10.2 Pelvic and perineal pain; Z3A.15 15 weeks gestation of pregnancy
CPT/HCPCS: 36415; 76775-TC; 76815; 80053; 81003; 85025; 87086; 99283-25

== ENCOUNTER 2018-06-06 20:45 | Emergency (ER) | payer OTHER ==
--- NOTE | 2018-06-06 20:55 | PDOC ---
Rapid Medical Evaluation Chief Complaint: Cold Symptoms Time Seen by Provider: 06/06/18 20:53 Medical Evaluation: Allergies Allergy/AdvReac Type Severity Reaction Status Date / Time No Known Drug Allergies Allergy Verified 04/12/18 22:56 shrimp Allergy Uncoded 04/12/18 22:56 06/06/18 20:54 I have performed a brief in-person evaluation of this patient. The patient presents with CC of: Sinus pressure PE: Skin: clear Heart: RRR Lungs: Clear MS: Moves all extremities without difficulty Neuro: Alert Psych: Appropriate affect The patient will proceed to [facility] for further evaluation. Discharge Disposition - Diagnosis Sinusitis Qualifiers: Sinusitis location: frontal Chronicity: acute Recurrence: non-recurrent Qualified Code(s): J01.10 - Acute frontal sinusitis, unspecified - Referrals Referrals: Juan Daugherty MD [Primary Care Provider] - - Patient Instructions - Post Discharge Activity
[2018-06-06 20:58] VITALS: BMI 34.2
--- NOTE | 2018-06-06 21:29 | PDOC ---
History of Present Illness - General Chief Complaint: Cold Symptoms Stated Complaint: COLD SYMPTOMS Time Seen by Provider: 06/06/18 20:53 - History of Present Illness Initial Comments: 06/06/18 21:24 6 M gravid 38 y/o F with 3 weeks of sinus congestion Past History - Past Medical History Allergies/Adverse Reactions: Allergies Allergy/AdvReac Type Severity Reaction Status Date / Time No Known Drug Allergies Allergy Verified 06/06/18 20:57 shrimp Allergy Uncoded 06/06/18 20:57 Home Medications: Ambulatory Orders Amox-Tr/K Cl [Augmentin - 875Mg Tablet] 1 tab PO BID #20 tablet 06/06/18 Anemia: No Asthma: No Cancer: No Cardiac Disorders: No CVA: No COPD: No CHF: No DVT: Yes Dementia: No Diabetes: No GI Disorders: Yes (DIVERTICULITIS) Disorders: No HTN: No Hypercholesterolemia: Yes Kidney Stones: Yes Liver Disease: No Seizures: No Thyroid Disease: No - Surgical History Abdominal Surgery: Yes Appendectomy: No Cardiac Surgery: No Cholecystectomy: Yes GI Surgery: Yes (COLECTOMY) Lung Surgery: No Neurologic Surgery: No Orthopedic Surgery: No - Reproductive History (#): 5 Para: 2 Spontaneous : 2 - Immunization History Immunization Up to Date: Yes - Suicide/Smoking/Psychosocial Hx Smoking Status: No Smoking History: Never smoked Have you smoked in the past 12 months: No Number of Cigarettes Smoked Daily: 0 Information on smoking cessation initiated: No Hx Alcohol Use: No Drug/Substance Use Hx: No Substance Use Type: None Hx Substance Use Treatment: No Review of Systems - Review of Systems HEENTM: Yes: Nose Congestion *Physical Exam - Vital Signs Last Vital Signs Temp Pulse Resp BP Pulse Ox 97.8 F 105 H 16 116/63 100 06/06/18 20:54 06/06/18 20:54 06/06/18 20:54 06/06/18 20:54 06/06/18 20:54 - Physical Exam Comments: 06/06/18 21:25 HEAD: NC/AT EYES: Conjuntiva clear Ears: Canals and TM's normal NOSE: clear discharge injected turbinates THROAT: Moist mucous membrances, oral pharanx clear, uvula midline NECK: Supple without adenopathy CARDIAC: S1 S2 LUNGS: CTA Full and Equal breath sounds ABDOMEN: Soft NT ND MS: Full ROM in all joints without edema NEUROLOGIC: No gross sensory or motor deficits, NVID SKIN: Normal color and temperature no lesions or rashes Moderate Sedation - Procedure Monitoring Vital Signs: Procedure Monitoring Vital Signs Temperature 97.8 F 06/06/18 20:54 Pulse Rate 105 H 06/06/18 20:54 Respiratory Rate 16 06/06/18 20:54 Blood Pressure 116/63 06/06/18 20:54 O2 Sat by Pulse Oximetry (%) 100 06/06/18 20:54 Medical Decision Making - Medical Decision Making 06/06/18 21:29 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 report 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 for clearance home *DC/Admit/Observation/Transfer Diagnosis at time of Disposition: Sinusitis Qualifiers: Sinusitis location: frontal Chronicity: acute Recurrence: non-recurrent Qualified Code(s): J01.10 - Acute frontal sinusitis, unspecified - Discharge Dispostion Disposition: HOME Condition at time of disposition: Stable Decision to Admit order: No - Prescriptions Prescriptions: Amox-Tr/K Cl [Augmentin - 875Mg Tablet] 1 tab PO BID #20 tablet - Referrals Referrals: Juan Daugherty MD [Primary Care Provider] - - Patient Instructions Printed Discharge Instructions: Sinusitis, DI for Sinusitis Additional Instructions: Return to the emergency room should symptoms worsen or go unresolved. Please take the antibiotics as directed. Follow-up with your primary care physician in one to 2 days for further evaluation and treatment options. - Post Discharge Activity
[2018-06-06 22:20] VITALS: BP 122/56; PULSE 93; TEMP 98.4
== END 2018-06-06 22:50 | disposition home or self-care (01) ==
LOC: JER 20:45
DX: O26.892 Other specified pregnancy related conditions, second trimester (principal); Z3A.00 Weeks of gestation of pregnancy not specified; J01.10 Acute frontal sinusitis, unspecified
CPT/HCPCS: 99281-25

== ENCOUNTER 2018-08-04 23:14 | Emergency (ER) | payer OTHER ==
[2018-08-04 23:29] VITALS: BP 121/67; PULSE 88; TEMP 98.6; BMI 33.6
--- NOTE | 2018-08-05 00:04 | PDOC ---
History of Present Illness - General Chief Complaint: Toothache Stated Complaint: TOOTHACHE History Source: Patient Exam Limitations: No Limitations - History of Present Illness Initial Comments: 08/04/18 23:59 Best Contact: PCP: Dr. Juan Daugherty Pmhx:Denies Pshx: 2018: sigmoid colectomy (diverticulitis), 2016: left ovarian cystectomy, 2008: lap cholecystectomy, Allergies: NKDA FH: 0 Social Hx: Cigarettes/ 0 Alcohol/ 0 Drugs/0 LMP: 12/28/2017 38-year-old female presents to the ER complaining of a left second upper molar toothache which started at approximately 1900 hrs. this evening. Pain is exacerbated with cold drinks. Patient denies fever, chills, nausea/vomiting, difficulty swallowing, sore throat, airway, facial pain, headache, dizziness, lightheadedness, neck pain, neck stiffness. P{t is 31 weeks . Pt sent to the ER from L&D. Pt was on L&D for IVF. Cleared by L&D. Past History - Past Medical History Allergies/Adverse Reactions: Allergies Allergy/AdvReac Type Severity Reaction Status Date / Time No Known Drug Allergies Allergy Verified 08/04/18 23:19 shrimp Allergy Intermediate Itching Uncoded 08/04/18 23:19 Home Medications: Ambulatory Orders Albuterol Sulfate Inhaler - [Ventolin Hfa Inhaler -] 1 - 2 inh PO PRN PRN Vitamins (Sjr) - 1 tab PO DAILY 07/17/18 Aspirin [Children's Aspirin] 1 tab PO DAILY 08/04/18 Anemia: No Asthma: Yes (in ) Cancer: No Cardiac Disorders: No CVA: No COPD: No CHF: No DVT: Yes Dementia: No Diabetes: No GI Disorders: Yes (DIVERTICULITIS) Disorders: No HTN: No Hypercholesterolemia: Yes Kidney Stones: Yes Liver Disease: No Seizures: No Thyroid Disease: No - Surgical History Abdominal Surgery: Yes Appendectomy: No Cardiac Surgery: No Cholecystectomy: Yes GI Surgery: Yes (COLECTOMY) Lung Surgery: No Neurologic Surgery: No Orthopedic Surgery: No - Reproductive History (#): 5 Para: 2 Spontaneous : 2 - Immunization History Immunization Up to Date: Yes - Suicide/Smoking/Psychosocial Hx Smoking Status: No Smoking History: Never smoked Have you smoked in the past 12 months: No Number of Cigarettes Smoked Daily: 0 Information on smoking cessation initiated: No Hx Alcohol Use: No Drug/Substance Use Hx: No Substance Use Type: None Hx Substance Use Treatment: No Review of Systems - Review of Systems Able to Perform ROS?: Yes Comments:: 08/05/18 00:02 CONSTITUTIONAL: Absent: fever, chills, diaphoresis, generalized weakness, malaise, loss of appetite HEENT: Left upper 2nd molar toothache Absent: rhinorrhea, nasal congestion, throat pain, throat swelling, difficulty swallowing, mouth swelling, ear pain, eye pain, visual Changes SKIN: Absent: rash, itching, pallor Is the patient limited Telugu proficient: No *Physical Exam - Vital Signs Last Vital Signs Temp Pulse Resp BP Pulse Ox 98.6 F 88 20 121/67 98 08/04/18 23:21 08/04/18 23:21 08/04/18 23:21 08/04/18 23:21 08/04/18 23:21 - Physical Exam Comments: 08/05/18 00:02 GENERAL: Well developed, well nourished. Awake and alert. No acute distress. HEENT: +pain Left upper 2nd molar toothache with percussion; neg gum swelling Neg trismus Normocephalic, atraumatic. PERRLA, EOMI. No conjunctival pallor. Sclera are non- icteric. Moist mucous membranes. Oropharynx is clear. NECK: Supple. Full ROM. No JVD. Carotid pulses 2+ and symmetric, without bruits. No thyromegaly. No lymphadenopathy. SKIN: Warm and dry. Normal capillary refill. No rashes. No jaundice. Moderate Sedation - Procedure Monitoring Vital Signs: Procedure Monitoring Vital Signs Temperature 98.6 F 08/04/18 23:21 Pulse Rate 88 08/04/18 23:21 Respiratory Rate 20 08/04/18 23:21 Blood Pressure 121/67 08/04/18 23:21 O2 Sat by Pulse Oximetry (%) 98 08/04/18 23:21 *DC/Admit/Observation/Transfer Diagnosis at time of Disposition: Tooth ache - Discharge Dispostion Disposition: HOME Condition at time of disposition: Stable Decision to Admit order: No - Referrals Referrals: Rosita Haines MD [Primary Care Provider] - - Patient Instructions Printed Discharge Instructions: DI for Dental Pain Additional Instructions: Follow up with the dentist [facility] [phone] [place]: [phone] Monday through Monday: 4 PM to 9 PM Monday and Monday 9 AM to 5 PM Antibiotics is described Tylenol as needed for pain Return back to the ER for severe/persistent or worsening symptoms - Post Discharge Activity
== END 2018-08-05 00:12 | disposition home or self-care (01) ==
LOC: JER 23:14
DX: O99.89 Other specified diseases and conditions complicating pregnancy, childbirth and the puerperium (principal); K08.89 Other specified disorders of teeth and supporting structures; Z3A.31 31 weeks gestation of pregnancy
CPT/HCPCS: 99282-25

== ENCOUNTER 2018-09-26 10:30 | Inpatient (IN) | payer OTHER ==
[2018-09-26 11:27] VITALS: BMI 35.9
[2018-09-26 11:42] LABS: BASO % 0.3 % (0-2.0); EOS % 1.4 % (0-4.5); HEMATOCRIT 37.2 % (32.4-45.2); HEMOGLOBIN 12.2 GM/dL (10.7-15.3); LYMPH % 18.9 % (8-40); MCH 27.6 pg (25.7-33.7); MCHC 32.8 g/dl (32.0-36.0); MEAN CELL VOLUME 84.2 fl (80-96); MEAN PLT VOLUME 9.7 fl (7.5-11.1); MONO % 7.3 % (3.8-10.2); NEUT % 72.1 % (42.8-82.8); PLATELET COUNT 179 K/MM3 (134-434); RBC 4.42 M/mm3 (3.60-5.2); RDW 14.2 % (11.6-15.6); WHITE BLOOD COUNT 9.8 K/mm3 (4.0-10.0)
[2018-09-26 12:08] LABS: INR 0.95 (0.83-1.09); PROTHROMBIN TIME (PATIENT) 11.2 SEC (9.7-13.0)
[2018-09-26 12:10] LABS: ACTIVATED PTT 28.2 SECONDS (25.2-36.5)
[2018-09-26 12:18] LABS: ANION GAP 10 MMOL/L (8-16); BLOOD UREA NITROGEN 6 mg/dL (7-18); CALCIUM 8.5 mg/dL (8.5-10.1); CHLORIDE 107 mmol/L (98-107); CO2 20 mmol/L (21-32); CREATININE 0.4 mg/dL (0.55-1.3); GLUCOSE,RANDOM 76 mg/dL (74-106); SODIUM 137 mmol/L (136-145)
[2018-09-26] MEDS ORDERED: TUBERCULIN PPD 5 TU/0.1ML SYRINGE (IN PATIENT USE ONLY) ID ONE (14:00)
[2018-09-26] MEDS ORDERED: BUTORPHANOL TARTRATE 1 MG/ML VIAL IVPB ONE (14:43)
--- NOTE | 2018-09-26 14:49 | HP ---
Past Medical History - Primary Care Physician PCP:: Rosita Haines - Admission Chief Complaint: spontaneous leaking of membranes. obesity. iup at 38.6 weeks History Source: Patient Limitations to Obtaining History: No Limitations - Past Medical History Gastrointestinal: Yes: Diverticulitis, Diverticulosis, Gastritis ...: 7 ...Para: 2 ...Term: 2 ...: 0 ...Spon : 4 ...Induced : 0 ...Multiple Gestation: 0 ...LMP: 12/28/17 ... Weeks Gestation by Dates: 38.6 ...EDC by Dates: 10/04/18 ...EDC by Sono: 10/01/18 - Past Surgical History Past Surgical History: Yes: None Hx Myomectomy: No Hx Transabdominal Cerclage: No - Smoking History Smoking history: Never smoked Have you smoked in the past 12 months: No Aproximately how many cigarettes per day: 0 - Alcohol/Substance Use Hx Alcohol Use: No History of Substance Use: reports: None - Social History Usual Living Arrangement: Yes: With Spouse History of Recent Travel: No Home Medications - Allergies Allergies/Adverse Reactions: Allergies Allergy/AdvReac Type Severity Reaction Status Date / Time shellfish derived Allergy Hives Verified 09/26/18 13:03 - Home Medications Home Medications: Ambulatory Orders Albuterol Sulfate Inhaler - [Ventolin Hfa Inhaler -] 1 - 2 inh PO PRN PRN Vitamins (Sjr) - 1 tab PO DAILY 07/17/18 Family Disease History - Family Disease History Family Disease History: Other: Mother (stroke) Physical Exam - Maternity Vital Signs: Vital Signs Temperature 97.5 F L 09/26/18 10:30 Pulse Rate 86 09/26/18 10:30 Respiratory Rate 18 09/26/18 10:30 Blood Pressure 115/68 09/26/18 10:30 O2 Sat by Pulse Oximetry (%) Constitutional: Yes: Well Nourished, No Distress Cardiovascular: Yes: WNL Lungs: Clear to auscultation Breast(s): Yes: WNL - Abdominal Exam/OB Number of Fetuses: Single Contractions: No Category: I Accelerations: Non-Uniform Decelerations: None - Vaginal Exam/OB Amniotic Membrane Status: Leaking Presentation: Vertex/Position Station: -1 - Physical Exam Musculoskeletal: Yes: WNL Extremities: Yes: WNL Edema: No Integumentary: Yes: WNL - Labs Lab Results: CBC, BMP 09/26/18 11:00 09/26/18 11:00 Hemorrhage Risk Assessment - Risk Factors Risk Score: 0 Risk Level: Low Risk Problem List - Problems (1) 39 weeks gestation of Code(s): Z3A.39 - 39 WEEKS GESTATION OF (2) Spontaneous rupture of membranes Code(s): CTD9868 - (3) Obesity (BMI 35.0-39.9 without comorbidity) Code(s): E66.9 - OBESITY, UNSPECIFIED Assessment/Plan IUP at 38.6 obesity leaking of membranes plan cervidil
[2018-09-26] MEDS ORDERED: AMPICILLIN - 2 GM in SODIUM CHLORIDE 100 ML IVPB ONE (15:00)
[2018-09-26] MEDS ORDERED: AMPICILLIN SODIUM 2 GM VIAL ONE (15:55)
[2018-09-26] MEDS: ELECTROLYTE-148 SOLN 1,000 ML IV SCH ×2 (16:00→18:40)
[2018-09-26] MEDS ORDERED: BUTORPHANOL TARTRATE 1 MG/ML VIAL ONE ×2 (16:53)
[2018-09-26] MEDS ORDERED: PROMETHAZINE HCL 25 MG/1 ML VIAL ONE (16:54)
[2018-09-26] MEDS ORDERED: PROMETHAZINE HCL 25 MG/1 ML VIAL IVPB ONE (17:30)
--- NOTE | 2018-09-26 19:08 | PN ---
Ante-Partal Exam - Subjective Subjective: Pt doing good sp stadol at 455pm Vital Signs: Vital Signs Temperature 98.2 F 09/26/18 18:00 Pulse Rate 85 09/26/18 18:00 Respiratory Rate 20 09/26/18 18:00 Blood Pressure 127/64 09/26/18 18:00 O2 Sat by Pulse Oximetry (%) Bleeding: No Headache: No Visual changes: No Right upper quadrant pain: No - Contractions Contractions: Yes Regularity: Irregular Intensity: Mild/Mod Monitor Mode: External - Exam during Labor Variability: Moderate Category: I Monitor Accelerations: Present Monitor Decelerations: None Exam: Vaginal (cervidil removed) Dilatation (cm): 2 Effacement (%): 80 Amniotic Membrane Status: Leaking Presentation: Vertex Station: -2 - Intrapartum Hemorrhage Risk Risk Score: 0 Risk Level: Low Risk - Assessment/Plan Assessment/Plan: iup at 38.6 leaking fluid Cat 1 plan pitocin induction
--- NOTE | 2018-09-26 19:09 | LDN ---
Oxytocin Pre-Use Checklist Date and Time completed: 09/26/18 4313 Physician order on chart: Yes Current history and physical on chart: Yes Indication for induction is documented: Yes record on chart: Yes Pelvis is documented by physician to be clinically adequate: Yes Estimated weight within past week (clinical or sono): Less than 4500 grams in a non-diabetic woman Gestational age is documented: Yes Consent signed: Yes Physician with privileges: is aware of the induction, is readily available, is documented in the medical record Status of the cervix is assessed and documented: Yes Presentation is assessed and documented: Yes Assessment completed and includes: A minimum of 30 minutes of monitoring is required prior to start, At least 2 accelerations (15bpm x 15sec) in 30 minutes are present, Adequate variability
[2018-09-26] MEDS ORDERED: OXYTOCIN 30 UNITS in 0.9% NS 30 UNIT/500 ML INFUS.BAG IVPB SCH (19:15)
[2018-09-26] MEDS: AMPICILLIN - 1 GM in SODIUM CHLORIDE 100 ML IVPB SCH (20:00)
[2018-09-26] MEDS ORDERED: AMPICILLIN SODIUM 1 GM VIAL ONE ×2 (20:37→23:59)
[2018-09-26] MEDS ORDERED: OXYTOCIN 30 UNITS in 0.9% NS 30 UNIT/500 ML INFUS.BAG IVPB ONE (20:42)
[2018-09-27] MEDS: ELECTROLYTE-148 SOLN 1,000 ML IV SCH ×2 (01:15→06:15)
[2018-09-27] MEDS: AMPICILLIN - 1 GM in SODIUM CHLORIDE 100 ML IVPB SCH ×4 (04:00→11:30)
[2018-09-27] MEDS ORDERED: AMPICILLIN SODIUM 1 GM VIAL ONE ×2 (06:08→07:53)
--- NOTE | 2018-09-27 09:09 | PN ---
Ante-Partal Exam - Subjective Subjective: Pt desires CS pitocin had to be turned off due to decels Vital Signs: Vital Signs Temperature 97.9 F 09/27/18 08:00 Pulse Rate 76 09/27/18 08:00 Respiratory Rate 20 09/27/18 08:00 Blood Pressure 113/63 09/27/18 08:00 O2 Sat by Pulse Oximetry (%) Bleeding: No Headache: No Visual changes: No Right upper quadrant pain: No - Contractions Contractions: No Monitor Mode: External - Exam during Labor Heart Rate: 150 Variability: Moderate Category: I Monitor Decelerations: None Exam: Vaginal Dilatation (cm): 2 Effacement (%): 80 Amniotic Membrane Status: Leaking Presentation: Vertex Station: -2 - Intrapartum Hemorrhage Risk Risk Score: 0 Risk Level: Low Risk - Assessment/Plan Assessment/Plan: intolerance to labor Failed induction Plan Primary Section
[2018-09-27] MEDS ORDERED: OXYTOCIN 20 UNITS in 0.9% NS 20 UNIT/1,000 ML INFUS.BAG IV ONE (10:45)
[2018-09-27] MEDS ORDERED: morphine SULFATE/Preservative Free 0.5 MG/ML (1cc Syringe) ONE (10:47)
[2018-09-27] MEDS ORDERED: SODIUM CHLORIDE 0.9% P/F 10 ML VIAL IJ ONE (11:08)
[2018-09-27] MEDS ORDERED: ceFAZolin SODIUM 1 GM VIAL ONE (11:08)
[2018-09-27] MEDS ORDERED: PHENYLEPHRINE HCL 10 MG/1 ML SINGLE DOSE VIAL ONE (11:08)
[2018-09-27] MEDS ORDERED: OXYTOCIN 10 UNITS/ML VIAL ONE (11:40)
[2018-09-27] MEDS ORDERED: MIDAZOLAM HCL 2 MG/2 ML SINGLE DOSE VIAL ONE (11:44)
[2018-09-27] MEDS ORDERED: KETOROLAC TROMETHAMINE 30 MG/1 ML VIAL ONE (11:52)
[2018-09-27] MEDS ORDERED: METHYLERGONOVINE MALEATE 0.2 MG/1 ML AMP IM PRN (12:07)
--- NOTE | 2018-09-27 12:07 | OP ---
Operative Note - Note: Operative Date: 09/27/18 Pre-Operative Diagnosis: Failed induction. intolerance to Labor. IUP at 39 week Operation: Primary low transverse Section Findings: Live male infant OP position Post-Operative Diagnosis: Same as Pre-op Surgeon: Rosita Haines Lithographic Photographer: Dulce Owen Anesthesia: Spinal Estimated Blood Loss (mls): 500 Operative Report Dictated: Yes
[2018-09-27] MEDS ORDERED: ONDANSETRON 4 MG/2 ML VIAL IVPUSH PRN (12:10)
[2018-09-27] MEDS ORDERED: OXYTOCIN 20 UNITS in 0.9% NS 20 UNIT/1,000 ML INFUS.BAG IV SCH (12:15)
--- NOTE | 2018-09-27 12:39 | OP ---
DATE OF OPERATION: 09/27/2018 PREOPERATIVE DIAGNOSIS: Failure induction, intolerance to labor, and intrauterine at 39 weeks. OPERATION: Low transverse primary section. POSTOPERATIVE DIAGNOSIS: Failure induction, intolerance to labor, intrauterine at 39 weeks, live male infant. SURGEON: Rosita Haines MD RESTAURANT RECRUITER: REGI Denny ANESTHESIA: Spinal. ESTIMATED BLOOD LOSS: 500 mL. DESCRIPTION OF PROCEDURE: The patient was taken to the operating room and placed in supine position, prepped and draped in the usual sterile fashion. Time-out was performed in accordance with hospital regulation. Pfannenstiel skin incision was made with a scalpel. Cautery was then used to go through the layers of abdominal wall to the level of the fascia. The fascia was cut in the midline, and cautery was then used to open the fascia in a smiling fashion. Kochers were then used to bluntly and sharply dissect the rectus muscle off the fascia. Muscle was split in the midline. Peritoneal cavity was then entered and carried upward and downward. Bladder retractor was then placed. Vesicouterine reflection was then entered, and the bladder was bluntly dissected out of the operative field. Scalpel was then used to make a low transverse uterine incision. Incision was carried upward using bandage scissors. A live male infant was delivered in OP position. Nose and mouth suction performed. Shoulders were delivered without difficulty. Cord was clamped and cut. Cord blood obtained. Placenta was manually extracted from the uterus. Uterus was exteriorized and cleaned with clean lap pads. Uterine incision then closed using 0 Biosyn suture 1st layer continuous and locking, 2nd layer imbricating the 1st layer. Hemostasis was achieved. The was handed to the control panel tester. Cord blood obtained. Cord pH obtained. Cord blood sampling obtained. Tubes and ovaries were noted to be normal. Incision was then closed in 2nd layer continuous and locking stitch. Hemostasis was achieved. Uterus interiorized. Abdominal cavity cleaned with clean lap pads. Peritoneum closed using 0 Biosyn suture. Fascia was then closed using 0 Vicryl suture in 2 parts. The subcutaneous was then approximated using 0 Biosyn suture. The skin was then closed using 3-0 Vicryl in subcuticular fashion. The wound was washed and dressed. The patient tolerated the procedure well. Estimated blood loss was 500 mL. ROSITA HAINES M.D. [id number] MTDD
--- NOTE | 2018-09-27 13:03 | SURG ---
Surgery Wig Sales Consultant Note Wig Sales Consultant: Dulce Owen PA-C Date of Service: 09/27/18 Diagnosis: Failed induction. intolerance to Labor. IUP at 39 week Procedure: Primary low transverse Sectio I was present for the entirety of the operative procedure. For further detail, please refer to operative report. Visit type - Case Type Case Type: Scheduled - Emergency Emergency Visit: No - New patient This patient is new to me today: No
[2018-09-27] MEDS: FERROUS SO4 325 MG TABLET (FP) PO SCH (17:35)
[2018-09-28] MEDS: IBUPROFEN 800 MG/8 ML IJ IVPB PRN ×2 (01:07→07:58)
[2018-09-28 08:32] LABS: BASO % 0.4 % (0-2.0); EOS % 1.3 % (0-4.5); HEMATOCRIT 30.6 % (32.4-45.2); HEMOGLOBIN 9.9 GM/dL (10.7-15.3); LYMPH % 11.5 % (8-40); MCH 27.7 pg (25.7-33.7); MCHC 32.5 g/dl (32.0-36.0); MEAN CELL VOLUME 85.2 fl (80-96); MEAN PLT VOLUME 9.3 fl (7.5-11.1); MONO % 7.8 % (3.8-10.2); PLATELET COUNT 131 K/MM3 (134-434); RBC 3.59 M/mm3 (3.60-5.2); RDW 14.6 % (11.6-15.6); WHITE BLOOD COUNT 10.1 K/mm3 (4.0-10.0)
--- NOTE | 2018-09-28 08:48 | PN ---
Progress Note (short form) - Note Progress Note: POD#1 Pt without any nausea or emesis. Having some mild RLQ abd pain(intermittent, burning sensation). Mother with baby this am nursing. As per nursing staff pt had some vaginal bleeding overnight, No large clots. Assisted pt along with nursing staff to restroom and pt voided after mazariegos removal. Vital Signs Period Temp Pulse Resp BP Sys/Reyez Pulse Ox Last 24 Hr 97.9 F-98.5 F 70-94 18-20 91-126/49-67 98-99 Mazariegos: 2350ml GEN: A&0x3, NAD ABD: soft, non-distended, inc tenderness. Dressing c/d/i. CBC, BMP 09/28/18 07:45 09/26/18 11:00 Laboratory Tests 09/26/18 11:00 WBC 9.8 Hgb 12.2 Hct 37.2 Plt Count 179 A/P: 38 yo female s/p c section, POD#1 Advanced diet to regular this am OOB and ambulate Remove mazariegos cath Pain meds as needed Discontinue IVF D/w Dr. Delatorre
[2018-09-28] MEDS: FERROUS SO4 325 MG TABLET (FP) PO SCH ×2 (09:15→18:13)
[2018-09-28] MEDS: PRENATAL VITAMINS W/ FOLIC ACID TABLET (FP) PO SCH (09:15)
[2018-09-28] MEDS ORDERED: PNEUMOCOCCAL 23 VACCINE 0.5 ML VIAL IM ONE (10:00)
[2018-09-28] MEDS ORDERED: DIPHTH,PERTUSS(ACELL),TET 0.5 ML DISP.SYRIN IM ONE (10:00)
[2018-09-28] MEDS ORDERED: FLU VACCINE QUAD 60 MCG/0.5 ML (MDV 18-19) IM ONE (10:00)
[2018-09-28] MEDS ORDERED: oxyCODONE HCL 5 MG TABLET PO PRN (12:07)
[2018-09-28] MEDS ORDERED: BISACODYL 10 MG SUPP.RECT RC PRN (12:07)
[2018-09-28] MEDS: ACETAMINOPHEN 325 MG TABLET (FP) PO PRN ×2 (12:33→18:15)
[2018-09-28] MEDS: SIMETHICONE 80 MG TAB.CHEW (FP) PO PRN ×2 (12:34→19:28)
[2018-09-28] MEDS: IBUPROFEN 600 MG TABLET (FP) PO PRN ×2 (12:34→18:15)
[2018-09-28] MEDS: oxyCODONE HCL 5 MG TABLET PO PRN ×2 (13:47→19:28)
[2018-09-29] MEDS: ACETAMINOPHEN 325 MG TABLET (FP) PO PRN ×4 (05:26→21:53)
[2018-09-29] MEDS: oxyCODONE HCL 5 MG TABLET PO PRN ×3 (05:26→21:54)
[2018-09-29] MEDS: SIMETHICONE 80 MG TAB.CHEW (FP) PO PRN ×4 (05:26→21:53)
[2018-09-29] MEDS: FERROUS SO4 325 MG TABLET (FP) PO SCH ×2 (08:23→17:18)
[2018-09-29] MEDS: PRENATAL VITAMINS W/ FOLIC ACID TABLET (FP) PO SCH (09:30)
[2018-09-29] MEDS ORDERED: DOCUSATE SODIUM 100 MG CAPSULE (FP) PO PRN (09:30)
--- NOTE | 2018-09-29 09:44 | PN ---
Post Progress Note - Subjective Subjective: Pt seen/examined and doing well. Pain controlled with PO meds. Ambulating, voiding, passing flatus. Tolerating regular diet. Type of Delivery: Primary C/S Vital Signs: Vital Signs Temperature 98.2 F 09/29/18 08:46 Pulse Rate 93 H 09/29/18 08:46 Respiratory Rate 20 09/29/18 08:46 Blood Pressure 125/78 09/29/18 08:46 O2 Sat by Pulse Oximetry (%) 98 09/27/18 13:45 Uterus: Yes: Fundus Firm Incision: Yes: Sutures intact Abdomen/GI: Yes: Abdomen soft, Tolerating PO Lochia: Yes: Rubra Lochia, amount: Small Extremities: Yes: Calves non-tender Perineum: Yes: Intact Activity: Ambulating - Labs Labs: CBC WBC 10.1 K/mm3 (4.0-10.0) H 09/28/18 07:45 RBC 3.59 M/mm3 (3.60-5.2) L 09/28/18 07:45 Hgb 9.9 GM/dL (10.7-15.3) L 09/28/18 07:45 Hct 30.6 % (32.4-45.2) L D 09/28/18 07:45 MCV 85.2 fl (80-96) 09/28/18 07:45 MCH 27.7 pg (25.7-33.7) 09/28/18 07:45 MCHC 32.5 g/dl (32.0-36.0) 09/28/18 07:45 RDW 14.6 % (11.6-15.6) 09/28/18 07:45 Plt Count 131 K/MM3 (134-434) L D 09/28/18 07:45 MPV 9.3 fl (7.5-11.1) 09/28/18 07:45 Absolute Neuts (auto) 8.0 K/mm3 (1.5-8.0) 09/28/18 07:45 Neutrophils % 79.0 % (42.8-82.8) 09/28/18 07:45 Lymphocytes % 11.5 % (8-40) D 09/28/18 07:45 Monocytes % 7.8 % (3.8-10.2) 09/28/18 07:45 Eosinophils % 1.3 % (0-4.5) 09/28/18 07:45 Basophils % 0.4 % (0-2.0) 09/28/18 07:45 Nucleated RBC % 0 % (0-0) 09/28/18 07:45 Problem List - Problems (1) delivery delivered Code(s): O82 - ENCOUNTER FOR DELIVERY WITHOUT INDICATION Assessment/Plan POD#2 s/p primary delivery AFVSS regular diet ambulation PO pain meds routine care
[2018-09-29] MEDS ORDERED: PNEUMOC 13-VAL CONJ-DIP CRM/PF 0.5 ML DISP.SYRIN IM ONE (13:00)
[2018-09-29] MEDS: IBUPROFEN 600 MG TABLET (FP) PO PRN (15:17)
[2018-09-30] MEDS: oxyCODONE HCL 5 MG TABLET PO PRN (01:49)
[2018-09-30] MEDS: SIMETHICONE 80 MG TAB.CHEW (FP) PO PRN ×2 (01:49→10:12)
[2018-09-30] MEDS: ACETAMINOPHEN 325 MG TABLET (FP) PO PRN ×2 (01:49→10:12)
--- NOTE | 2018-09-30 07:17 | DS ---
Physical Exam-REHAB THERAPY MANAGER Vital Signs: Vital Signs Temperature 98.6 F 09/29/18 21:18 Pulse Rate 96 H 09/30/18 02:00 Respiratory Rate 18 09/30/18 02:00 Blood Pressure 117/72 09/30/18 02:00 O2 Sat by Pulse Oximetry (%) 99 09/29/18 21:19 Constitutional: Yes: Well Nourished, No Distress, Calm HENT: Yes: Atraumatic Neck: Yes: Supple Cardiovascular: Yes: Regular Rate and Rhythm Respiratory: Yes: Regular Gastrointestinal: Yes: Soft ....Post : Yes: Uterus firm, Uterus non-tender Wound/Incision: Yes: Clean/Dry, Well Approximated Neurological: Yes: Alert, Oriented Labs: CBC, BMP 09/28/18 07:45 09/26/18 11:00 Delivery - Delivery Section: Primary, Low Flap Transverse Type of Anesthesia: Spinal Episiotomy/Laceration: None EBL (cc): 500 Delivery, Single - Stages of Labor Date of Delivery: 09/27/18 Time of Delivery: 11:42 Time Placenta Delivered: 11:43 Placenta: Yes: Manual Removal - Condition of Infant Studio Potter/Major Assembler Present: Yes Name: Monica Billings Gender: Male Weight: 7 lb 15 oz Position: OP Total Hours ROM (Hrs/Mins): 48h43m - 1 Minute Total Score: 9 5 Minutes Total Score: 9 - Uneeda Feeding Plan Initial Plan: Elected not to breastfeed exclusively throughout hospitalization Discharge Summary Reason For Visit: INDUCTION OF LABOR Current Active Problems 39 weeks gestation of (Acute) delivery delivered (Acute) Obesity (BMI 35.0-39.9 without comorbidity) (Acute) Spontaneous rupture of membranes (Acute) Procedures: Principal: Primary low transverse delivery Hospital Course: Pt admitted on 09/26/18 with spontaneous rupture of membranes. Patient's labor was induced/augmented with pitocin. On 09/27/2018 patient underwent delivery for failure to dilate. She had an uncomplicated post /post op recovery and was discharged home on post op day 3. Condition: Good - Instructions Diet, Activity, Other Instructions: Physical activity Resume your normal everyday activity as tolerated no heavy lifting or exercise until seen by your surgeon. You may walk unlimited oel of and climb stairs. You may resume driving the car when you feel safe and comfortable behind the wheel. No sexual activity as instructed. Wound care If you have a bandage, leave it on, and keep dry for 48-72 hours. After that time discard the outer bandage. If they are tapes on the skin under the out of bandage leave them in place. They will peel off in the next 7 to 10 days. Do Not Peel them off. You may shower the day after surgery. If there are tapes present on the skin, you may shower over them. Diet There are no dietary restrictions. Eat healthy, high-fiber foods. Drink 6 to 8 glasses of liquid each day. This will assist in keeping your bowels are regular. Pain management You may take Tylenol or acetaminophen or Ibuprofen (for example, Motrin, Advil etc.) from my pain prescription medication is ordered should be taken as prescribed for moderate to severe pain. Call MD for any of the following: Severe pain not relieved by medication Fever of 101 or higher Excessive bleeding or drainage on dressing Inability to urinate Disposition: HOME - Home Medications Comprehensive Discharge Medication List: Ambulatory Orders Albuterol Sulfate Inhaler - [Ventolin Hfa Inhaler -] 1 - 2 inh PO PRN PRN Vitamins (Sjr) - 1 tab PO DAILY 07/17/18 Ibuprofen [Motrin -] 600 mg PO QID PRN #28 tablet 09/30/18 Oxycodone HCl/Acetaminophen [Percocet 5-325 mg Tablet -] 1 tab PO Q4H #20 tablet MDD 6 09/30/18
[2018-09-30 09:18] LABS: BASO % 0.2 % (0-2.0); EOS % 4.2 % (0-4.5); HEMATOCRIT 28.5 % (32.4-45.2); HEMOGLOBIN 9.3 GM/dL (10.7-15.3); LYMPH % 20.9 % (8-40); MCH 27.7 pg (25.7-33.7); MCHC 32.6 g/dl (32.0-36.0); MEAN CELL VOLUME 84.8 fl (80-96); MEAN PLT VOLUME 9.1 fl (7.5-11.1); MONO % 8.9 % (3.8-10.2); NEUT % 65.8 % (42.8-82.8); PLATELET COUNT 160 K/MM3 (134-434); RBC 3.36 M/mm3 (3.60-5.2); RDW 14.5 % (11.6-15.6); WHITE BLOOD COUNT 5.8 K/mm3 (4.0-10.0)
[2018-09-30] MEDS: PRENATAL VITAMINS W/ FOLIC ACID TABLET (FP) PO SCH (10:02)
[2018-09-30] MEDS: FERROUS SO4 325 MG TABLET (FP) PO SCH (10:02)
[2018-09-30] MEDS: IBUPROFEN 600 MG TABLET (FP) PO PRN (10:12)
[2018-09-30 10:46] VITALS: BP 121/74; PULSE 81; TEMP 98.1
--- NOTE | 2018-10-03 16:46 | PATH ---
Surgical Pathology Report Patient Name: FAWAD REIS Med. Rec. #: [id number] /Age/Gender: 1980 (Age: 38) / F Account: [id number] Location: [facility] OBS/AVIATION MEDICINE SPECIALIST Taken: 09/27/2018 Received: 09/28/2018 Reported: 10/03/2018 Physicians: Rosita Haines M.D. Specimen(s) Received PLACENTA Clinical History at 39 weeks for primary Final Diagnosis PLACENTA: THIRD TRIMESTER PLACENTA. TRIVASCULAR CORD. MEMBRANES WITH NO DIAGNOSTIC ABNORMALITIES. Electronically Signed Kelby Duval M.D. Gross Description The specimen is received fresh labeled placenta and is a 442 gram, 19.0 x 14.0 x 2.7 cm. placenta with attached membranes and umbilical cord. The attached membranes are alvarado, translucent with focal opacities and insert marginally. The umbilical cord measures 13 cm. in length and averages 1.3 cm. in diameter. The cord inserts eccentrically, 2.5 cm. to the nearest margin. No true knots or strictures are identified. Cut surface of the umbilical cord reveals 3 vessels. The surface is delacruz-blue with minimal fibrin deposition and appropriate caliber vessels. The maternal surface is red-brown with focal defects. Sectioning reveals red-brown, spongy parenchyma. No focal lesions are identified. Line Fixer sections are submitted in three cassettes as follows: 1- membrane rolls and umbilical cord; 2-3- full thickness sections of placenta. /10/02/2018 saudi/10/02/2018
== END 2018-09-30 12:40 | disposition home or self-care (01) | DRG 788 ==
LOC: JLDR 10:30 → J3W 09-27 14:10
PROVIDERS: ADMIT Obstetrics & Gynecology; ATTEND Obstetrics & Gynecology
PROC: 3E033VJ Introduction of Other Hormone into Peripheral Vein, Percutaneous Approach (ICD-10-PCS; 2018-09-26)
PROC: 10D00Z1 Extraction of Products of Conception, Low, Open Approach (ICD-10-PCS; principal; 2018-09-27)
DX: O62.0 Primary inadequate contractions (principal); O76 Abnormality in fetal heart rate and rhythm complicating labor and delivery; O61.0 Failed medical induction of labor; O99.214 Obesity complicating childbirth; E66.9 Obesity, unspecified; Z3A.38 38 weeks gestation of pregnancy; Z37.0 Single live birth
CPT/HCPCS: 36415; 36600; 80048; 82803; 85025; 85610; 85730; 86593; 86850; 86900; 86901; 87389; 88307-TC; 90686; 90715; 90732; G0008; G0009

== ENCOUNTER 2019-02-27 19:43 | Emergency (ER) | payer OTHER ==
[2019-02-27 19:49] VITALS: BMI 32.1
--- NOTE | 2019-02-27 19:50 | PDOC ---
Rapid Medical Evaluation Time Seen by Provider: 02/27/19 19:45 Medical Evaluation: Allergies Allergy/AdvReac Type Severity Reaction Status Date / Time shellfish derived Allergy Hives Verified 09/26/18 13:03 02/27/19 19:47 I have performed a brief in-person evaluation of this patient. The patient presents with a chief complaint of:Reports L ear pain and pelvic pain w/ ?dysuria. H/o recurrent UTI, ovarian cyst hx, s/p cection 5 months ago Pertinent physical exam findings:stable but emelyn uncomfortable, defer rest of exam to ED provider I have ordered the following:ua/preg, gc/chlam The patient will proceed to the ED for further evaluation. Discharge Disposition - Diagnosis Pelvic pain, Ear pain, left - Referrals - Patient Instructions - Post Discharge Activity
[2019-02-27 20:48] LABS: PH,URINE 5.5 (5.0-8.0); URINE APPEARANCE CLEAR; URINE BILIRUBIN NEGATIVE (NEGATIVE); URINE COLOR YELLOW; URINE GLUCOSE (UA) NEGATIVE (NEGATIVE); URINE KETONE NEGATIVE (NEGATIVE); URINE LEUK ESTERASE NEGATIVE (NEGATIVE); URINE NITRITE NEGATIVE (NEGATIVE); URINE PROTEIN NEGATIVE (NEGATIVE)
--- NOTE | 2019-02-27 23:04 | PDOC ---
History of Present Illness - General Chief Complaint: Pain Stated Complaint: PAIN Time Seen by Provider: 02/27/19 19:45 - History of Present Illness Initial Comments: Ms. Jimenez is a 39 y/o female with hx of diverticulitis s/p sigmoid resection, PCOS, pre-DM, migraines, presenting today with left ear pain and suprapubic pain. Reports that the left ear pain started two days ago. Describes the pain as worse whenever she touches or moves the external ear. Pain spreads along the left jaw and left neck. Reports she had a sinus infection last week and was given azithromycin. Denies fever. Denies chills. Reports pain with swallowing but denies sore throat. Also reports suprapubic pain that started 1 day ago. Describes the pain as sharp. Denies dysuria or dyschezia. Denies hematuria or hematochezia. Pain does not radiate anywhere else. Reports dyspraneuria. Reports constipation and difficulty with bowel movements since her colon resection and difficulty with urination since her cyst removal surgery. Denies chest pain/shortness of breath. Past History - Past Medical History Allergies/Adverse Reactions: Allergies Allergy/AdvReac Type Severity Reaction Status Date / Time shellfish derived Allergy Hives Verified 09/26/18 13:03 Home Medications: Ambulatory Orders Albuterol Sulfate Inhaler - [Ventolin Hfa Inhaler -] 1 - 2 inh PO PRN PRN Vitamins (Sjr) - 1 tab PO DAILY 07/17/18 Ibuprofen [Motrin -] 600 mg PO QID PRN #28 tablet 09/30/18 Oxycodone HCl/Acetaminophen [Percocet 5-325 mg Tablet -] 1 tab PO Q4H #20 tablet MDD 6 09/30/18 Ciprofloxacin HCl/Dexameth [Ciprodex Otic Suspension] 4 drop BID 7 Days #1 bottle 02/28/19 Anemia: No Asthma: Yes (Last attack in 2017, takes Albuterol PRN) Cancer: No Cardiac Disorders: No CVA: No COPD: No CHF: No DVT: Yes Dementia: No Diabetes: No GI Disorders: Yes (DIVERTICULITIS) Disorders: No HTN: No Hypercholesterolemia: Yes Kidney Stones: Yes Liver Disease: No Seizures: No Thyroid Disease: No - Surgical History Abdominal Surgery: Yes Appendectomy: No Cardiac Surgery: No Cholecystectomy: Yes GI Surgery: Yes (COLECTOMY) Lung Surgery: No Neurologic Surgery: No Orthopedic Surgery: No - Reproductive History (#): 5 Para: 2 Spontaneous : 2 - Immunization History Immunization Up to Date: Yes - Suicide/Smoking/Psychosocial Hx Smoking Status: No Smoking History: Never smoked Have you smoked in the past 12 months: No Number of Cigarettes Smoked Daily: 0 Hx Alcohol Use: No Drug/Substance Use Hx: No Substance Use Type: None Hx Substance Use Treatment: No Review of Systems - Review of Systems Comments:: GENERAL/CONSTITUTIONAL: No fever or chills. No weakness._ HEAD, EYES, EARS, NOSE AND THROAT: No change in vision. No change in hearing. No sore throat. Reports left ear pain. CARDIOVASCULAR: No chest pain or shortness of breath_ RESPIRATORY: Denies cough, hemoptysis_ GASTROINTESTINAL: No nausea, vomiting, diarrhea. Reports constipation. Reports suprapubic abdominal pain. GENITOURINARY: No dysuria, frequency, or change in urination._ MUSCULOSKELETAL: No joint or muscle swelling or pain. No neck or back pain._ SKIN: No rash_ NEUROLOGIC: No headache, vertigo, loss of consciousness, or change in strength/ sensation._ ENDOCRINE: No increased thirst. No abnormal weight change_ HEMATOLOGIC/LYMPHATIC: No anemia, easy bleeding, or history of blood clots._ ALLERGIC/IMMUNOLOGIC: No hives or skin allergy._ *Physical Exam - Vital Signs Last Vital Signs Temp Pulse Resp BP Pulse Ox 98.5 F 96 H 18 129/72 97 02/27/19 19:47 02/27/19 19:47 02/27/19 19:47 02/27/19 19:47 02/27/19 19:47 - Physical Exam Comments: GENERAL: Awake, alert, and oriented to person/place/time, in no acute distress_ HEAD: No signs of trauma, normocephalic, atraumatic _ EYES: PERRLA, EOMI, sclera anicteric, conjunctiva clear_ ENT: Hearing grossly normal, nares patent, oropharynx clear without exudates. No uvular deviation. Moist mucosa. Left ear canal erythematous. NECK: Normal ROM, supple, no lymphadenopathy, JVD, or masses_ LUNGS: No distress, speaks in full sentences, clear to auscultation bilaterally _ HEART: Regular rate and rhythm, normal S1 and S2, no murmurs appreciated, peripheral pulses normal and equal bilaterally._ ABDOMEN: Soft, TTP suprapubic, normoactive bowel sounds. No guarding, no rebound. No masses. Pelvic: Os closed. White mucous discharge visible around the cervix. No blood appreciated. Positive midline tenderness and left adnexal tenderness. EXTREMITIES: Normal inspection, Normal range of motion, no edema. No clubbing or cyanosis_ NEUROLOGICAL: Cranial nerves II through XII grossly intact. Normal speech, normal gait, no focal sensorimotor deficits _ SKIN: Warm, Dry, normal turgor, no rashes or lesions noted_ ED Treatment Course - LABORATORY CBC & Chemistry Diagram: 02/27/19 23:50 02/27/19 23:50 - ADDITIONAL ORDERS Additional order review: Laboratory Results 02/27/19 02/27/19 20:15 20:15 Urine Color Yellow Urine Appearance Clear Urine pH 5.5 D Ur Specific [place] 1.025 Urine Protein Negative Urine Glucose (UA) Negative Urine Ketones Negative Urine Blood Negative Urine Nitrite Negative Urine Bilirubin Negative Urine Urobilinogen 1.0 Ur Leukocyte Esterase Negative Urine HCG, Qual Negative Medical Decision Making - Medical Decision Making 39F with hx of diverticulitis and sigmoid resection presenting with 2 days of left ear pain and 1 day of suprapubic abdominal pain. No fever, no chills, no dysuria. Constipation but no dyschezia. Obtain CBC, CMP, UA/UC, CT facial bones, CT abdomen. Morphine for pain control and fluids. 02/28/19 0100 Labs reviewed. WBC mildly elevated otherwise wnl. UA negative for UTI. 02/28/19 0130 Patient reports itching after IV contrast. No anaphylaxis. No rashes or hives seen on reevaluation. Benadryl 25 mg and Solu-Medrol 125 mg. 02/28/19 0145 Discussed with radiologist application engineer. CT abdomen shows 5.4 cm septated cyst on left ovary. Otherwise no acute intra-abdominal pathology. TVUS to r/o ovarian torsion. CT facial bones shows sinusitis. No signs of fracture or mastoiditis. 02/28/19 0300 TVUS does not show any signs of ovarian torsion. CT abd otherwise negative. Plan to d/c home with ciprodex drops for left otitis externa and f/u Dr. Haines (pt's OBGYN) for further evaluation of ovarian cyst. Patient verbalized understanding and agreement with this plan. *DC/Admit/Observation/Transfer Diagnosis at time of Disposition: Pelvic pain, Ear pain, left - Discharge Dispostion Disposition: HOME Condition at time of disposition: Stable - Prescriptions Prescriptions: Ciprofloxacin HCl/Dexameth [Ciprodex Otic Suspension] 4 drop BID 7 Days #1 bottle - Referrals Referrals: Juan Daugherty MD [Primary Care Provider] - - Patient Instructions Additional Instructions: Please take Tylenol and Motrin as needed for pain control (follow instructions on the package). Please use Cipro Dex ear drops in the left ear (4 drops, twice per day for 7 days). Please make an appointment with your OBGYN Dr. Haines to follow up the left ovarian cyst. If you experience any new, worsening, or concerning symptoms, including severe pain, fever, chest pain, difficulty breathing, blood in the stool, bleeding from the rectum, severe headache, loss of consciousness, dizziness, or any other concerns, please return to the emergency room. - Post Discharge Activity Forms/Work/School Notes: Back to Work
[2019-02-27] MEDS ORDERED: SODIUM CHLORIDE 0.9% 500 ML INFUS.BAG IV ONE (23:21)
[2019-02-27] MEDS ORDERED: morphine SULFATE 4 MG/ML VIAL IVPUSH ONE (23:21)
[2019-02-27] MEDS ORDERED: morphine SULFATE 4 MG/ML VIAL ONE (23:46)
[2019-02-28 00:01] LABS: EOS % 1.9 % (0-4.5); HEMATOCRIT 39.9 % (32.4-45.2); LYMPH % 24.5 % (8-40); MCH 27.8 pg (25.7-33.7); MCHC 32.7 g/dl (32.0-36.0); MEAN CELL VOLUME 85.1 fl (80-96); MEAN PLT VOLUME 8.6 fl (7.5-11.1); MONO % 8.2 % (3.8-10.2); NEUT % 64.4 % (42.8-82.8); PLATELET COUNT 271 K/MM3 (134-434); RBC 4.69 M/mm3 (3.60-5.2); RDW 13.8 % (11.6-15.6); WHITE BLOOD COUNT 11.9 K/mm3 (4.0-10.0)
--- NOTE | 2019-02-28 00:01 | PDOC ---
Documentation entered by Uri Haro SCRIBE, acting as scribe for Jerome Vaughn MD. Jerome Vaughn MD: This documentation has been prepared by the Tahir cartagena Daniel, SCRIBE, under my direction and personally reviewed by me in its entirety. I confirm that the documentation accurately reflects all work, treatment, procedures, and medical decision making performed by me. Attending Attestation - Resident Resident Name: Nolan Michaels - ED Attending Attestation I have performed the following: I have examined & evaluated the patient, The case was reviewed & discussed with the resident, I agree w/resident's findings & plan, Exceptions are as noted - HPI HPI: 02/27/19 23:16 The patient is a 39 year old female with a past medical history of diverticulitis s/p sigmoid resection (10/18 [facility]),pre diabetes, PCOS, c-sections, and migraines here today for evaluation of left ear pain and suprapubic pain. The patient reports that she was diagnosed with sinusitis 1 week ago and was given antibiotics. She reports that she has had 2 days of external left ear pain that radiates down her face and neck and notes that it is worse with swallowing. She also notes 1 day of midline suprapubic pain that radiates to her lower back and is worsened with any bowel movement or urination. She also reports constipation since her sigmoid resection, chills, and vaginal discharge which she describes as clear and stretchy. Patient denies headache, lightheadedness. Denies fever. Denies chest pain, shortness of breath. Denies nausea, vomiting, diarrhea. Allergies: shellfish derived PCP: Juan Daugherty - Physicial Exam PE: 02/27/19 23:29 GENERAL: Awake, alert, and fully oriented, in no acute distress HEAD: No signs of trauma EYES: PERRLA, EOMI, sclera anicteric, conjunctiva clear ENT: +left ear tenderness, mastoid tenderness. Boggy canal with exudates noted on exam of the left TM. NECK: Normal ROM, supple, no lymphadenopathy, JVD, or masses LUNGS: Breath sounds equal, clear to auscultation bilaterally. No wheezes, and no crackles HEART: Regular rate and rhythm, normal S1 and S2, no murmurs, rubs or gallops ABDOMEN: +suprapubic tenderness. Soft, normoactive bowel sounds. No guarding, no rebound. No masses EXTREMITIES: Normal range of motion, no edema. No clubbing or cyanosis. No cords, erythema, or tenderness NEUROLOGICAL: Cranial nerves II through XII grossly intact. Normal speech, normal gait SKIN: Warm, Dry, normal turgor, no rashes or lesions noted. 02/27/19 23:58 - Medical Decision Making 02/27/19 23:59 Suprapubic tenderness in pt with sigmoid resection, hx diverticulitis Mastoid tenderness, L ear pain concern for intra-abdominal process - recurrent diverticulitis concern for mastoiditis afebrile vss labs ua/ucx CT Facial bones w/ contrast to r/o mastoiditis CT Abd Pelvis w/ oral and IV to r/o complicated diverticulitis pain control dispo per CT results
[2019-02-28 00:26] LABS: ALBUMIN 3.5 g/dl (3.4-5.0); BILIRUBIN,TOTAL 0.4 mg/dL (0.2-1); BLOOD UREA NITROGEN 8.7 mg/dL (7-18); CALCIUM 8.8 mg/dL (8.5-10.1); CREATININE 0.6 mg/dL (0.55-1.3); POTASSIUM 4.2 mmol/L (3.5-5.1); TOT PROT 7.3 g/dl (6.4-8.2)
[2019-02-28] MEDS ORDERED: MAG HYDROX/AL HYDROX/SIMETH 30 ML UNIT-DOSE CUP ONE (00:36)
[2019-02-28] MEDS ORDERED: LIDOCAINE VISCOUS 2% ORAL/TOP 20 ML UNIT-DOSE CUP ONE (00:36)
[2019-02-28] MEDS ORDERED: LIDOCAINE VISCOUS 2% ORAL/TOP 20 ML UNIT-DOSE CUP MM ONE (00:36)
[2019-02-28] MEDS ORDERED: FAMOTIDINE 20 MG/50 ML IVPB 20 MG/50 ML MG IVPB ONE ×2 (00:36→00:37)
[2019-02-28] MEDS ORDERED: MAG HYDROX/AL HYDROX/SIMETH -MYLANTA- ORAL SUSPENSION PO ONE (00:36)
[2019-02-28] MEDS ORDERED: DEXAMETHASONE SOD PHOSPHATE 10 MG/1 ML VIAL IVPUSH ONE (01:29)
[2019-02-28] MEDS ORDERED: DEXAMETHASONE SOD PHOSPHATE 10 MG/1 ML VIAL ONE (01:31)
[2019-02-28] MEDS ORDERED: methylPREDNISolone NA SUCC 125 MG/2 ML VIAL ONE (01:33)
[2019-02-28] MEDS ORDERED: methylPREDNISolone NA SUCC 125 MG/2 ML VIAL IVPUSH ONE (01:34)
[2019-02-28 03:24] VITALS: BP 107/57; PULSE 81; TEMP 98
== END 2019-02-28 03:24 | disposition home or self-care (01) ==
LOC: JER 19:43
PROC: 3E0337Z Introduction of Electrolytic and Water Balance Substance into Peripheral Vein, Percutaneous Approach (ICD-10-PCS; principal; 2019-02-27)
PROC: 3E033NZ Introduction of Analgesics, Hypnotics, Sedatives into Peripheral Vein, Percutaneous Approach (ICD-10-PCS; 2019-02-27)
PROC: 3E033GC Introduction of Other Therapeutic Substance into Peripheral Vein, Percutaneous Approach (ICD-10-PCS; 2019-02-27)
DX: R10.2 Pelvic and perineal pain (principal); H92.02 Otalgia, left ear; E78.00 Pure hypercholesterolemia, unspecified; Z86.718 Personal history of other venous thrombosis and embolism
CPT/HCPCS: 36415; 70486-TC; 74177-TC; 76830-TC; 80053; 81003; 84703; 85025; 87077; 87086; 87491; 87591; 99283-25

== ENCOUNTER 2020-08-07 19:02 | Emergency (ER) | payer OTHER ==
[2020-08-07 19:25] VITALS: TEMP 98; BMI 34.0
[2020-08-07] MEDS ORDERED: METOCLOPRAMIDE HCL INJECTION 10 MG/2 ML VIAL IVPUSH ONE (21:08)
[2020-08-07] MEDS ORDERED: ACETAMINOPHEN 1000 MG/100 ML VIAL (NON FORMULARY) IVPB ONE (21:08)
[2020-08-07] MEDS ORDERED: METOCLOPRAMIDE HCL INJECTION 10 MG/2 ML VIAL ONE (21:22)
[2020-08-07] MEDS ORDERED: ACETAMINOPHEN INJECTION 100 ML IVPB ONE (21:23)
[2020-08-07 21:26] LABS: BASO % 0.3 % (0-2.0); EOS % 1.4 % (0-4.5); HEMATOCRIT 41.3 % (32.4-45.2); HEMOGLOBIN 13.6 GM/dL (10.7-15.3); LYMPH % 14.4 % (8-40); MCH 28.6 pg (25.7-33.7); MCHC 32.9 g/dl (32.0-36.0); MEAN CELL VOLUME 86.7 fl (80-96); MEAN PLT VOLUME 9.3 fl (7.5-11.1); MONO % 5.7 % (3.8-10.2); NEUT % 78.2 % (42.8-82.8); PLATELET COUNT 326 K/MM3 (134-434); RBC 4.76 M/mm3 (3.60-5.2); RDW 13.2 % (11.6-15.6); WHITE BLOOD COUNT 12.2 K/mm3 (4.0-10.0)
[2020-08-07 21:52] LABS: CHLORIDE 97 mmol/L (98-107); POTASSIUM 3.7 mmol/L (3.5-5.1); SODIUM 134 mmol/L (136-145)
[2020-08-07 21:54] LABS: CALCIUM 9.1 mg/dL (8.5-10.1)
[2020-08-07 21:55] LABS: ANION GAP 8 MMOL/L (8-16); BLOOD UREA NITROGEN 8.6 mg/dL (7-18); CO2 29 mmol/L (21-32); GLUCOSE,RANDOM 85 mg/dL (74-106)
[2020-08-07 21:58] LABS: CREATININE 0.7 mg/dL (0.55-1.3); SGOT/AST 21 U/L (15-37); SGPT/ALT 24 U/L (13-61)
[2020-08-07 22:00] LABS: BILIRUBIN,TOTAL 0.4 mg/dL (0.2-1); TOT PROT 8.2 g/dl (6.4-8.2)
[2020-08-07 22:01] LABS: ALK PHOS 97 U/L (45-117)
[2020-08-07] MEDS ORDERED: LORazepam 2 MG TABLET PO ONE (22:35)
[2020-08-08] MEDS ORDERED: LORazepam 1 MG TABLET ONE (00:51)
[2020-08-08 01:30] VITALS: BP 107/59; PULSE 99
== END 2020-08-08 01:30 | disposition home or self-care (01) ==
LOC: JER 19:02
PROC: 3E033NZ Introduction of Analgesics, Hypnotics, Sedatives into Peripheral Vein, Percutaneous Approach (ICD-10-PCS; principal; 2020-08-07)
PROC: 3E033GC Introduction of Other Therapeutic Substance into Peripheral Vein, Percutaneous Approach (ICD-10-PCS; 2020-08-07)
DX: R07.89 Other chest pain (principal)
CPT/HCPCS: 36415; 71046-TC-FY; 80053; 82550; 84443; 84484; 85025; 93005; 93010; 99285-25; J0131

== ENCOUNTER 2021-01-06 14:43 | Emergency (ER) | payer OTHER ==
[2021-01-06 14:53] VITALS: BP 106/63; PULSE 86; TEMP 98.2; BMI 34.7
[2021-01-06] MEDS ORDERED: KETOROLAC TROMETHAMINE 30 MG/1 ML VIAL IM ONE (15:42)
[2021-01-06] MEDS ORDERED: KETOROLAC TROMETHAMINE 30 MG/1 ML VIAL ONE (15:48)
== END 2021-01-06 20:10 | disposition home or self-care (01) ==
LOC: JERFT 14:43
PROC: 3E0233Z Introduction of Anti-inflammatory into Muscle, Percutaneous Approach (ICD-10-PCS; principal; 2021-01-06)
DX: M79.662 Pain in left lower leg (principal)
CPT/HCPCS: 93971-TC; 99284-25

== ENCOUNTER 2022-08-23 19:35 | Emergency (ER) | payer OTHER ==
[2022-08-23 19:58] VITALS: BP 110/78; PULSE 92; RESP 18; TEMP 99; BMI 34.5
[2022-08-23] MEDS ORDERED: KETOROLAC TROMETHAMINE 60 MG/2 ML VIAL IM ONE (20:08)
[2022-08-23] MEDS ORDERED: CYCLOBENZAPRINE HCL 10 MG TABLET (FP) PO ONE (20:09)
[2022-08-23] MEDS ORDERED: KETOROLAC TROMETHAMINE 60 MG/2 ML VIAL ONE (20:17)
[2022-08-23] MEDS ORDERED: CYCLOBENZAPRINE HCL 5 MG TABLET ONE (21:48)
== END 2022-08-23 21:55 | disposition home or self-care (01) ==
LOC: FER 19:35
PROC: 3E023GC Introduction of Other Therapeutic Substance into Muscle, Percutaneous Approach (ICD-10-PCS; principal; 2022-08-23)
DX: R07.1 Chest pain on breathing (principal); M54.6 Pain in thoracic spine
CPT/HCPCS: 36415; 82550; 84484; 93005; 99284-25

== ENCOUNTER 2024-02-16 15:54 | Emergency (ER) | payer OTHER ==
[2024-02-16] MEDS ORDERED: LIDOCAINE 5% TOPICAL PATCH TP ONE (16:15)
[2024-02-16 16:16] VITALS: BP 109/52; PULSE 95; RESP 18; TEMP 98.4; BMI 34.9
[2024-02-16] MEDS ORDERED: ACETAMINOPHEN 500 MG TABLET (FP) ONE (16:40)
[2024-02-16] MEDS ORDERED: METHOCARBAMOL 500 MG TABLET ONE (16:40)
[2024-02-16] MEDS ORDERED: KETOROLAC TROMETHAMINE 30 MG/1 ML VIAL ONE (16:41)
[2024-02-16] MEDS: ACETAMINOPHEN 500 MG TABLET (FP) PO ONE (16:52)
[2024-02-16] MEDS: METHOCARBAMOL 500 MG TABLET PO ONE (16:52)
[2024-02-16] MEDS: KETOROLAC TROMETHAMINE 15 MG/ML VIAL IM ONE (16:52)
[2024-02-16] MEDS ORDERED: LIDOCAINE 5% TOPICAL PATCH ONE (17:22)
[2024-02-16] MEDS ORDERED: LIDOCAINE PATCH REMOVAL MC SCH (22:00)
== END 2024-02-16 17:47 | disposition home or self-care (01) ==
LOC: FER 15:54
PROC: 3E0133Z Introduction of Anti-inflammatory into Subcutaneous Tissue, Percutaneous Approach (ICD-10-PCS; principal; 2024-02-16)
DX: M54.42 Lumbago with sciatica, left side (principal)
CPT/HCPCS: 81003; 87086; 99284-25

== ENCOUNTER 2024-08-15 21:35 | Emergency (ER) | payer OTHER ==
[2024-08-15 21:50] VITALS: BP 151/81; PULSE 98; RESP 18; TEMP 98.4; BMI 35.5
[2024-08-15] MEDS ORDERED: ALBUTEROL SO4 2.5/IPRATROPIUM 0.5 INH SOL 3 ML VIAL.NEB. NEB ONE (23:05)
[2024-08-15] MEDS ORDERED: predniSONE 20 MG TABLET (UD) ONE (23:05)
[2024-08-15] MEDS ORDERED: AMOX TR/POT CLAV 875MG/125MG TABLETS (FP) ONE (23:05)
[2024-08-15] MEDS: predniSONE 20 MG TABLET (UD) PO ONE (23:08)
[2024-08-15] MEDS: AMOX TR/POT CLAV 875MG/125MG TABLETS (FP) PO ONE (23:08)
[2024-08-15] MEDS: ALBUTEROL SO4 2.5/IPRATROPIUM 0.5 INH SOL 3 ML VIAL.NEB. NEB ONE (23:08)
== END 2024-08-15 23:33 | disposition home or self-care (01) ==
LOC: FER 21:35
PROC: 3E0F7GC Introduction of Other Therapeutic Substance into Respiratory Tract, Via Natural or Artificial Opening (ICD-10-PCS; principal; 2024-08-15)
DX: J45.901 Unspecified asthma with (acute) exacerbation (principal); R05.9 Cough, unspecified
CPT/HCPCS: 71046-TC-FY; 99283-25